=== PATIENT | male | born 1970 | race Two or more races ===

== ENCOUNTER → 2025-01-21 | Outpatient (CLI) | payer MEDICARE, SELFPAY ==
[2025-01-21 12:02] LABS: Basophils % (Auto) 1 % (0-2.5); Eosinophils % (Auto) 1 % (0-10); Hematocrit 45.1 % (41.0-53.0); Hemoglobin 15.6 g/dL (13.5-16.0); Immature Granulocytes % (Auto) 0 % (0-0); Immature Granulocytes Auto 0.01 Thou/mm3 (0.00-0.00); Lymphocytes # (Auto) 1.5 Thou/mm3 (1.0-4.8); Lymphocytes % (Auto) 38 % (10-50); Mean Corpuscular HGB Conc 34.6 g/dl (31.0-37.0); Mean Corpuscular Hemoglobin 30.4 pg (25.0-35.0); Mean Corpuscular Volume 88 fL (80-100); Monocytes # (Auto) 0.4 Thou/mm3 (0.0-0.8); Monocytes % (Auto) 10 % (0-12); Neutrophils % (Auto) 50 % (37-80); Nucleated Red Blood Cell % 0 /100 WBC (0); Platelet Count 185 Thou/mm3 (140-440); RDW Standard Deviation 43.6 fL (35.1-43.9); Red Blood Count 5.14 Miln/mm3 (4.50-5.90)
[2025-01-21 12:18] LABS: INR 3.2 (0.9-1.3)
[2025-01-21 12:27] LABS: Alanine Aminotransferase 27 U/L (10-49); Albumin, Serum 4.3 gm/dL (3.5-5.0); Albumin/Globulin Ratio 1.7 (1.2-2.2); Alkaline Phosphatase 133 U/L (46-116); Anion Gap 9 (7-16); Aspartate Amino Transferase 31 U/L (0-34); BUN/Creatinine Ratio 22 Ratio (12-20); Bilirubin,Total 0.9 mg/dL (0.3-1.2); Blood Urea Nitrogen 13 mg/dL (9-23); Calcium 9.2 mg/dL (8.3-10.6); Calcium (Corrected) 9.2 mg/dL (8.5-10.1); Carbon Dioxide 29.8 mMol/L (20.0-31.0); Cardiac Risk Estimate 5.1 RATIO (4.0-6.7); Chloride 105 mMol/L (98-107); Cholesterol 213 mg/dL (132-200); Creatinine (Component) 0.6 mg/dL (0.6-1.3); Globulin 2.5 gm/dL (2.3-3.5); Glucose 102 mg/dL (74-106); HDL Cholesterol 42 mg/dL (40-60); LDL Cholesterol,Calculated 131 mg/dL (0-130); Osmolality,Calculated 286 (275-295); Potassium 4.5 mMol/L (3.4-5.1); Sodium 144 mMol/L (136-145); Total Protein 6.8 gm/dL (5.7-8.2); Triglycerides 201 mg/dL (30-150); Uric Acid 5.9 mg/dL (3.7-9.2); eGFR > 60 See Note
[2025-01-21 12:41] LABS: Prothrombin Time 32.7 Seconds (9.0-12.2)
[2025-01-21 13:00] LABS: Collection Type, Urine Clean Catch; Squamous Epithelial Cell,Urine 0 /hpf (0-5)
[2025-01-21 13:24] LABS: Bacteria,Urine Rare; Bilirubin,Urine Negative (Negative); Blood,Urine Negative (Negative); Clarity,Urine Clear (Clear/Hazy); Color,Urine Yellow (Lt Yel-Yel); Glucose, Urine Negative (Negative); Ketones,Urine Negative (Negative); Leukocyte Esterase,Urine Negative (Negative); Nitrite,Urine Negative (Negative); Protein,Urine Trace (Neg - Trace); RBC,Urine 27 /hpf (0-3); Specific Gravity,Urine 1.028 (1.001-1.035); Urobilinogen,Urine Negative mg/dL (0.0-1.0); WBC,Urine 1 /hpf (0-5)
== END | disposition home or self-care (01) ==
LOC: COPL 11:05
PROVIDERS: PCP Family Medicine; Referring Provider Family Medicine; Visit Provider Family Medicine
DX: Z00.00 Encounter for general adult medical examination without abnormal findings (principal); E78.2 Mixed hyperlipidemia; I10 Essential (primary) hypertension; E79.0 Hyperuricemia without signs of inflammatory arthritis and tophaceous disease; Z95.2 Presence of prosthetic heart valve
CPT/HCPCS: 36415; 80053; 80061; 81001; 84550; 85025; 85610

== ENCOUNTER → 2025-02-17 | Outpatient (CLI) | payer OTHER, SELFPAY ==
--- NOTE | 2025-02-17 | XR_ITS ---
Examination: Shoulder,right, 3 views Technique: Shoulder AP internal rotation, AP external rotation, Y view shoulder, 3 views Exam date and time :February 09, 2025 1133 hours INDICATIONS: Right shoulder pain one year. FINDINGS: Moderate osteopenia. Moderate narrowing glenohumeral joint No fracture or shoulder dislocation Minimal AC joint offset, 4 mm, which may be chronic IMPRESSION: Moderate narrowing glenohumeral joint Minimal AC joint separation which may be chronic
== END | disposition home or self-care (01) ==
PROVIDERS: PCP Family Medicine; Referring Provider Family Medicine; Visit Provider Family Medicine
DX: S43.101A Unspecified dislocation of right acromioclavicular joint, initial encounter (principal); X58.XXXA Exposure to other specified factors, initial encounter; M25.811 Other specified joint disorders, right shoulder
CPT/HCPCS: 73030

== ENCOUNTER → 2025-05-13 | Outpatient (CLI) | payer OTHER, SELFPAY ==
[2025-05-13 10:37] LABS: Basophils # (Auto) 0.1 Thou/mm3 (0.0-0.2); Basophils % (Auto) 1 % (0-2.5); Eosinophils # (Auto) 0.1 Thou/mm3 (0.0-0.5); Eosinophils % (Auto) 1 % (0-10); Hematocrit 46.0 % (41.0-53.0); Hemoglobin 15.8 g/dL (13.5-16.0); Immature Granulocytes Auto 0.02 Thou/mm3 (0.00-0.00); Lymphocytes # (Auto) 1.8 Thou/mm3 (1.0-4.8); Lymphocytes % (Auto) 35 % (10-50); Mean Corpuscular HGB Conc 34.3 g/dl (31.0-37.0); Mean Corpuscular Hemoglobin 30.2 pg (25.0-35.0); Mean Corpuscular Volume 88 fL (80-100); Monocytes # (Auto) 0.4 Thou/mm3 (0.0-0.8); Monocytes % (Auto) 8 % (0-12); Neutrophils # (Auto) 2.8 Thou/mm3 (1.8-7.7); Neutrophils % (Auto) 54 % (37-80); Nucleated Red Blood Cell # 0.00 Thou/mm3 (0.00-0.00); Nucleated Red Blood Cell % 0 /100 WBC (0); Platelet Count 202 Thou/mm3 (140-440); RDW Standard Deviation 42.2 fL (35.1-43.9); Red Blood Count 5.23 Miln/mm3 (4.50-5.90); White Blood Count 5.2 Thou/mm3 (3.8-10.6)
[2025-05-13 10:50] LABS: Alanine Aminotransferase 24 U/L (10-49); Albumin, Serum 4.1 gm/dL (3.5-5.0); Albumin/Globulin Ratio 1.7 (1.2-2.2); Alkaline Phosphatase 140 U/L (46-116); Anion Gap 9 (7-16); Aspartate Amino Transferase 30 U/L (0-34); BUN/Creatinine Ratio 17 Ratio (12-20); Bilirubin,Total 0.8 mg/dL (0.3-1.2); Blood Urea Nitrogen 10 mg/dL (9-23); Calcium 9.6 mg/dL (8.3-10.6); Calcium (Corrected) 9.6 mg/dL (8.5-10.1); Carbon Dioxide 25.6 mMol/L (20.0-31.0); Cardiac Risk Estimate 3.3 RATIO (4.0-6.7); Chloride 107 mMol/L (98-107); Cholesterol 130 mg/dL (132-200); Creatinine (Component) 0.6 mg/dL (0.6-1.3); Globulin 2.4 gm/dL (2.3-3.5); Glucose 111 mg/dL (74-106); HDL Cholesterol 39 mg/dL (40-60); LDL Cholesterol,Calculated 52 mg/dL (0-130); Osmolality,Calculated 283 (275-295); Potassium 4.3 mMol/L (3.4-5.1); Sodium 142 mMol/L (136-145); Total Protein 6.5 gm/dL (5.7-8.2); Triglycerides 197 mg/dL (30-150); eGFR > 60 See Note
[2025-05-13 10:51] LABS: INR 3.3 (0.9-1.3)
[2025-05-13 11:04] LABS: Prothrombin Time 33.1 Seconds (9.0-12.2)
[2025-05-17 07:05] LABS: Valporic Acid (Depak)* 32.8 mg/L (50.0-100.0)
== END | disposition home or self-care (01) ==
LOC: COPL 09:40
PROVIDERS: PCP Family Medicine; Referring Provider Family Medicine; Visit Provider Family Medicine
DX: E78.2 Mixed hyperlipidemia (principal); I10 Essential (primary) hypertension; G40.89 Other seizures
CPT/HCPCS: 36415; 80053; 80061; 80164; 85025; 85610

== ENCOUNTER 2025-05-14 11:21 | Inpatient (IN) | payer OTHER, MEDICARE, SELFPAY ==
[2025-05-14 11:21] VITALS: BMI 29.0
--- NOTE | 2025-05-14 11:25 | EKG_ITS ---
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
[2025-05-14 12:05] VITALS: BP 143/83; PULSE 71; RESP 18; TEMP 37.1; O2SAT 93
--- NOTE | 2025-05-14 12:30 | XR_ITS ---
Examination: AP lateral chest 2 views TECHNIQUE: AP lateral chest 2 views Date and time: May 14, 2025 12:57 PM Comparison 06/02/2012 INDICATIONS: Chest pain today beginning 6:00 AM FINDINGS: Minor prominence left ventricle Median sternotomy wires with valve ring No lobar pneumonia or pulmonary edema Intact osseous structures Bilateral probable ventricular peritoneal shunt tubes IMPRESSION: No pneumonia or pulmonary edema
--- NOTE | 2025-05-14 12:32 | PD.EDRME ---
Rapid Medical Screening Exam RME Arrival date/time: 05/14/25 11:21 Chief Complaint: Chest Pain Vital signs: Vital Signs Temperature 98.7 F 05/14/25 12:05 Pulse Rate 71 05/14/25 12:05 Respiratory Rate 18 05/14/25 12:05 Blood Pressure 143/83 H 05/14/25 12:05 Pulse Oximetry (%) 93 L 05/14/25 12:05 Oxygen Delivery Method Room Air 05/14/25 12:05 RME Narrative: Patient is a 54-year-old male with medical history notable for mitral and aortic valve replacement, left surgery approximately 10 years ago at an Emergency Department with concerns for chest pain. Chest pain started approximately 6 AM, started at rest. Patient follows with Dr. Stevens. Patient takes warfarin daily. 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 Denies nausea vomiting abdominal pain dysuria recent travel sick contacts
[2025-05-14 13:31] LABS: Basophils # (Auto) 0.1 Thou/mm3 (0.0-0.2); Basophils % (Auto) 1 % (0-2.5); Eosinophils # (Auto) 0.1 Thou/mm3 (0.0-0.5); Eosinophils % (Auto) 1 % (0-10); Hematocrit 47.2 % (41.0-53.0); Hemoglobin 15.9 g/dL (13.5-16.0); Immature Granulocytes Auto 0.01 Thou/mm3 (0.00-0.00); Lymphocytes # (Auto) 2.1 Thou/mm3 (1.0-4.8); Lymphocytes % (Auto) 38 % (10-50); Mean Corpuscular HGB Conc 33.7 g/dl (31.0-37.0); Mean Corpuscular Hemoglobin 29.7 pg (25.0-35.0); Mean Corpuscular Volume 88 fL (80-100); Monocytes # (Auto) 0.5 Thou/mm3 (0.0-0.8); Monocytes % (Auto) 8 % (0-12); Neutrophils # (Auto) 2.8 Thou/mm3 (1.8-7.7); Neutrophils % (Auto) 52 % (37-80); Nucleated Red Blood Cell # 0.00 Thou/mm3 (0.00-0.00); Nucleated Red Blood Cell % 0 /100 WBC (0); Platelet Count 194 Thou/mm3 (140-440); RDW Standard Deviation 42.1 fL (35.1-43.9); Red Blood Count 5.35 Miln/mm3 (4.50-5.90); White Blood Count 5.4 Thou/mm3 (3.8-10.6)
[2025-05-14 13:57] LABS: INR 3.2 (0.9-1.3)
[2025-05-14 13:59] LABS: Prothrombin Time 32.0 Seconds (9.0-12.2)
[2025-05-14 14:06] LABS: B-Type Natriuretic Peptide 42 pg/mL (0-100)
[2025-05-14 14:09] LABS: Alanine Aminotransferase 26 U/L (10-49); Albumin, Serum 4.5 gm/dL (3.5-5.0); Albumin/Globulin Ratio 1.6 (1.2-2.2); Alkaline Phosphatase 152 U/L (46-116); Anion Gap 12 (7-16); Aspartate Amino Transferase 30 U/L (0-34); BUN/Creatinine Ratio 18 Ratio (12-20); Bilirubin,Total 0.8 mg/dL (0.3-1.2); Blood Urea Nitrogen 11 mg/dL (9-23); Calcium 9.5 mg/dL (8.3-10.6); Calcium (Corrected) 9.5 mg/dL (8.5-10.1); Carbon Dioxide 24.0 mMol/L (20.0-31.0); Chloride 105 mMol/L (98-107); Creatinine (Component) 0.6 mg/dL (0.6-1.3); Estimated Creatinine Clearance 137.9 mL/min (>60); Globulin 2.9 gm/dL (2.3-3.5); Glucose 92 mg/dL (74-106); Osmolality,Calculated 280 (275-295); Potassium 3.8 mMol/L (3.4-5.1); Sodium 141 mMol/L (136-145); Total Protein 7.4 gm/dL (5.7-8.2); Troponin I < 0.020 ng/mL (0.0-0.045); eGFR > 60 See Note
[2025-05-14 15:48] VITALS: BP 147/79; PULSE 90; RESP 18; TEMP 36.9; O2SAT 97
--- NOTE | 2025-05-14 16:04 | PD.IMCONS ---
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, s/p mechanical mitral and aortic valve surgeries in the past on coumadin anticoagulation ; pt had out patient cardiac w/u for atypical chest pain and stres test was abnormal ; out pt heart cath planned pt seen in the ER with chest pain and being admitted will plan to d/c coumadin and start on heparin EKG unremarkable cc:: cc: Meds Home Medications and Allergies Home Medications ?Medication ?Instructions ?Recorded ?Confirmed ?Type amlodipine 5 mg tablet 25 mg PO QDAY 05/13/18 05/13/18 History valproic acid 250 mg capsule 500 mg PO BID 05/13/18 05/13/18 History warfarin 6 mg tablet 6 mg PO QDAY 05/13/18 05/13/18 History Allergies Allergy/AdvReac Type Severity Reaction Status Date / Time No Known Allergies Allergy Verified 05/14/25 11:24 Exam Vital Signs Temp Pulse Resp BP Pulse Ox O2 Del Method 98.4 F 90 18 147/79 H 97 Room Air 05/14/25 15:48 05/14/25 15:48 05/14/25 15:48 05/14/25 15:48 05/14/25 15:48 05/14/25 15:48 Routine HEENT Exam Head: Present normocephalic and atraumatic Eye: Present EOMI and PERRL ENT: Present mucous membranes moist Routine Neck Exam Neck: Present supple and trachea midline Routine Respiratory Exam Respiratory: Present chest non-tender, lungs clear, normal breath sounds and no resp distress Routine Cardiovascular Exam Cardiovascular: Present RRR Routine Abdominal Exam Abdominal: Present soft and normoactive bowel sounds Routine Extremities Exam Extremities: Present full ROM Routine Skin Exam Skin: Present intact, dry and warm Routine Neurological Exam Neurological: Present alert, oriented X3 and CN II-XII intact Routine Psychiatric Exam Psychiatric: Present normal affect and normal thought process Results Labs 05/14/25 13:12 05/14/25 13:12 Labs: Short CBC 05/14/25 Range/Units 13:12 WBC 5.4 (3.8-10.6) Thou/mm3 Hgb 15.9 (13.5-16.0) g/dL Hct 47.2 (41.0-53.0) % Plt Count 194 (140-440) Thou/mm3 BMP 05/14/25 13:12 Sodium 141 Potassium 3.8 D Chloride 105 Carbon Dioxide 24.0 BUN 11 Creatinine 0.6 Glucose 92 Calcium 9.5 Cardiac Enzymes 05/14/25 Range/Units 13:12 Troponin I < 0.020 (0.0-0.045) ng/mL Liver Function 05/14/25 Range/Units 13:12 Total Bilirubin 0.8 (0.3-1.2) mg/dL AST 30 (0-34) U/L ALT 26 (10-49) U/L Alkaline Phosphatase 152 H (46-116) U/L Albumin 4.5 (3.5-5.0) gm/dL Assessment and Plan Assessment and plan (1) Angina at rest: Status: Acute (2) CAD (coronary artery disease): Status: Acute (3) S/P MVR (mitral valve replacement): Status: Acute (4) S/P AVR (aortic valve replacement): Status: Acute (5) Acquired deformities: Status: Acute (6) Hypertension: Status: Acute Additional Assessment & Plan Additional Plan: pt had out pt stress test which showed ischemia pt s/p Mechanical aortic and mitral valve on coumadin anticoagulation need to d/c coumadin and start on heparin drip for heart cath therapeutic PTT is important as pt had prior thromboembolism when anticoagulation is not therapeutic recommend echo
--- NOTE | 2025-05-14 16:09 | PD.EDCHEST ---
ED Chest Pain RME/HPI General Chief Complaint: Chest Pain Stated Complaint: CHEST PAIN SINCE 0600 Time Seen by Provider: 05/14/25 15:45 Arrival date/time: 05/14/25 11:21 Limitations: no limitations RME / HPI RME / HPI narrative: Patient is a 54-year-old male with medical history notable for mitral and aortic valve replacement, He came to the Emergency Department with concerns for chest pain with his sister. Chest pain started approximately 6 AM, started at rest. Patient follows with Dr. Stevens. Patient takes warfarin daily. 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 Denies nausea vomiting abdominal pain dysuria recent travel sick contacts. He has a [employer] valve and takes Coumadin for this. Related Data Home Medications ?Medication ?Instructions ?Recorded ?Confirmed amlodipine 5 mg tablet 25 mg PO QDAY 05/13/18 05/13/18 valproic acid 250 mg capsule 500 mg PO BID 05/13/18 05/13/18 warfarin 6 mg tablet 6 mg PO QDAY 05/13/18 05/13/18 Allergies Allergy/AdvReac Type Severity Reaction Status Date / Time No Known Allergies Allergy Verified 05/14/25 11:24 Review of Systems Review of Systems Systems Reviewed: All systems reviewed, normal except as documented ED Exam General Limitations: Present no limitations General appearance: Present alert and in no apparent distress Head Head exam: Present atraumatic Eye Eye exam: Present normal appearance, PERRL and EOMI ENT ENT exam: Present normal exam, normal oropharynx and mucous membranes moist Neck Neck exam: Present normal inspection, full ROM and trachea midline Chest Chest inspection: Present normal inspection and symmetric chest wall rise Respiratory Respiratory exam: Present normal lung sounds bilaterally Cardiovascular Cardiovascular exam: Present regular rate, normal rhythm and systolic murmur Abdominal Exam Abdominal exam: Present soft and normal bowel sounds Extremities Exam Extremities exam: Present normal inspection and full ROM Back Exam Back exam: Present normal inspection and full ROM Neurological Exam Neurological exam: Present alert and oriented X3 Psychiatric Psychiatric exam: Present normal affect and normal mood Skin Skin exam: Present warm, dry, intact and normal color Course Quality Measures none Orders Category Date Time Status COVID-19 Screening Questionnaire NOW Care 05/14/25 19:00 Active Decision to Admit Care 05/14/25 19:00 Active EKG (ED ONLY) *Do not use* NOW Care 05/14/25 11:25 Completed Consult to Cardiology Stat Cons 05/14/25 16:08 Ordered CXR2 [XR chest 2V] Stat Exams 05/14/25 12:30 Completed EKG (ED Only) Stat Exams 05/14/25 11:25 Draft BNP [B-Type Natriuretic Peptide] Stat Lab 05/14/25 13:12 Completed CBC Stat Lab 05/14/25 13:12 Completed CMP [Comprehensive Metabolic Panel] Stat Lab 05/14/25 13:12 Completed PT [Prothrombin Time with INR] Stat Lab 05/14/25 13:12 Completed Troponin I Stat Lab 05/14/25 13:12 Completed Heparin/D5w 25K 250 ML Ivpb [Heparin in D5w Ivpb] Med 05/14/25 19:15 Active 25,000 unit in 250 ml IV 12 units/kg/hr fentaNYL INJ [Sublimaze Inj] Med 05/14/25 12:30 Discontinued 50 mcg IM X1 ONE Vital Signs Vital signs: Vital Signs Temperature 98.7 F 05/14/25 12:05 Pulse Rate 71 05/14/25 12:05 Respiratory Rate 18 05/14/25 12:05 Blood Pressure 143/83 H 05/14/25 12:05 Pulse Oximetry (%) 93 L 05/14/25 12:05 Oxygen Delivery Method Room Air 05/14/25 12:05 Chest Pain MDM Narrative MDM Narrative:: Patient is a 54-year-old male with medical history notable for mitral and aortic valve replacement, He came to the Emergency Department with concerns for chest pain with his sister. Chest pain started approximately 6 AM, started at rest. Patient follows with Dr. Stevens. Patient takes warfarin daily. 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 Denies nausea vomiting abdominal pain dysuria recent travel sick contacts. He has a [employer] valve and takes Coumadin for this. On exam, patient has no toxic. No visible signs distress. Vital signs are stable. Workup was reviewed and discussed with the patient. His computer tester was contacted and would like the patient admitted for an angiogram. We will stop the Coumadin and start heparin drip. Case discussed with [facility] hospitalist team who will assist with the admission. Patient data External records reviewed:: [facility] previous records Clinical information provided by:: patient and family Social determinants that could affect healthcare access:: none Patient has the following chronic illnesses:: Coronary artery disease, aortic and mitral valve replacement How is presenting disease/condition affected by chronic disease/condition?: exacerbated by Evaluation data The following diagnostics were reviewed and interpreted by me:: lab results, radiology exam(s) and EKG tracing(s) Lab and/or radiology exams considered but not ordered:: n/a Interpretation Summary: Patient has no leukocytosis or anemia, INR is 3.2, PTT is 32 metabolic panel is unremarkable with exception of elevated alk phos at 152. Chest ray was clear without infiltrate. EKG was normal sinus rhythm with voltage for LVH. Medications / Prescriptions Medications or Prescriptions considered but not ordered:: n/a Medication administrations:: Medication Administration History Heparin Sodium/Dextrose (Heparin In D5w Ivpb) 25,000 unit in 250 mls @ 9.798 mls/hr IV .Q24H [facility]; Protocol Stop: 05/28/25 19:14 Discontinued Medications Fentanyl Citrate (Fentanyl Cit Inj 50 Mcg/Ml Amp 2ml) 50 mcg IM X1 ONE Stop: 05/14/25 12:31 see above Consultations Consultation(s) initiated? (list below): No Diagnosis Chest Pain Differential Diagnosis: stable angina, atypical chest pain, st elevation myocardial infarction and chest pain Most likely diagnosis given after review of the tests above:: chest pain Admission Indicated Admission indicated?: indicated Admission Request Was there a request for admission?: Yes Admission Attestation Admission request attestation: Discussed case with [] from Hospitalist service regarding admission. Discussed patients ED course, exam findings, labs, and radiology results. The Hospitalist [agrees,declines] to accept the patient for admission. Disposition Plan Disposition Plan: Admit Discharge Plan Plan Patient Disposition: Admit Acute Care w/in Hospital Patient condition on transfer: Stable Prescriptions/Referrals Prescriptions/Med Rec: No Action warfarin 6 mg Tablet 6 mg PO QDAY amlodipine 5 mg Tablet 25 mg PO QDAY valproic acid 250 mg Capsule 500 mg PO BID Referrals: Ti Lopez MD [Primary Care Provider] - In 1 week Problem List Clinical Impression: CAD (coronary artery disease), S/P MVR (mitral valve replacement), S/P AVR (aortic valve replacement), Chest pain Patient/Caregiver Discharge Instructions Print Language: German Stand Alone Forms: [employer] Award Info., Patient Portal Info Letter
[2025-05-14 18:41] VITALS: BP 118/74; PULSE 73; RESP 18; TEMP 36.9; O2SAT 95
--- NOTE | 2025-05-14 20:16 | ECHO_ITS ---
Transthoracic Echo Report Ht (in): 66 Wt (lb): 180 Exam Location: Echo Lab Status: Emergency Certified Driver Examiner: Yuliet Garcia Indications: Procedure Performed: BP: 130 / 79 HR: 63 MEASUREMENTS (Male / Female) Normal Values 2D ECHO LV Diastolic Diameter PLAX 3.9 cm 4.2 - 5.9 / 3.9 - 5.3 cm LV Systolic Diameter PLAX 2.8 cm IVS Diastolic Thickness 1.2 cm 0.6 - 1.0 / 0.6 - 0.9 cm LVPW Diastolic Thickness 1.0 cm 0.6 - 1.0 / 0.6 - 0.9 cm LV Relative Wall Thickness 0.6 LVOT Diameter 1.5 cm LA Volume Index 43.7 cm?/m? 16 - 28 cm?/m? DOPPLER AV Peak Velocity 228.0 cm/s AV Peak Gradient 20.8 mmHg AV Mean Gradient 10.0 mmHg AV Velocity Time Integral 42.5 cm LVOT Peak Velocity 81.1 cm/s LVOT Peak Gradient 2.6 mmHg LVOT Velocity Time Integral 19.9 cm LVOT Cardiac Index 1123.3 cm?/min?m? AV Area Cont Eq vti 0.8 cm? AV Area Cont Eq pk 0.6 cm? MV Peak Velocity 125.0 cm/s MV Peak Gradient 6.3 mmHg MV Mean Velocity 60.5 cm/s MV Mean Gradient 2.0 mmHg MV Area PHT 2.0 cm? Mitral E Point Velocity 138.0 cm/s Mitral A Point Velocity 54.2 cm/s Mitral E to A Ratio 2.5 LV E' Lateral Velocity 13.1 cm/s Mitral E to LV E' Lateral Ratio 10.5 LV E' Septal Velocity 6.9 cm/s Mitral E to LV E' Septal Ratio 20.1 TR Peak Velocity 313.0 cm/s TR Peak Gradient 39.2 mmHg PV Peak Velocity 96.4 cm/s PV Peak Gradient 3.7 mmHg FINDINGS Left Ventricle Normal left ventricular size, wall thickness, systolic function with no obvious regional wall motion abnormalities. Normal left ventricular diastolic filling pattern for age. The ejection fraction is visually estimated at 55%. Right Ventricle The right ventricular size is mildy increased with normal systolic function. Left Atrium Moderately increased left atrial volume 43.7 mL/m?. Right Atrium The right atrium is normal by two-dimensional imaging, color flow and Doppler imaging with no structural abnormalities, no thrombus formation present. Atrial Septum The interatrial septum appears normal with no evidence of a shunt. Aorta The aortic root, ascending aorta, aortic arch and descending thoracic aorta are normal to two-dimensional, color flow and Doppler interrogation. Mitral Valve The mitral valve prosthesis is normal to two-dimensional, color flow and Doppler interrogation. Trace mitral regurgitation. Aortic Valve The aortic valve prosthesis is normal to two-dimensional, color flow and Doppler interrogation. There is no evidence of mass/vegetation on the aortic valve prosthesis. Tricuspid Valve The tricuspid valve is normal by two-dimensional, color flow and Doppler interrogation. There is trace tricuspid valve regurgitation. Pulmonic Valve Mild pulmonic valve regurgitation. Vessels Inferior vena cava not well visualized. Pericardium The pericardium is normal by two-dimensional imaging. There is no significant pericardial effusion. CONCLUSIONS Indication: chest pain Normal LV size, wall thickness. Normal left ventricular diastolic filling pattern for age. Estimated EF at 55%. The RV size is mildy increased with normal systolic function. Moderately increased LA volume 43.7 mL/m?. The MV prosthesis is normal to two-dimensional, color flow and Doppler interrogation. Trace MR. The AV prosthesis is normal to two-dimensional, color flow and Doppler interrogation. There is no evidence of mass/vegetation on the aortic valve prosthesis. Mild PI. IVC not well visualized. Gary Stevens (Electronically Signed) Final Date: 17 May 2025 11:20
[2025-05-14 20:17] VITALS: BP 118/74; PULSE 67; RESP 18; O2SAT 94
[2025-05-14 20:25] LABS: Partial Thromboplastin Time 43.7 Seconds (22.0-36.0)
--- NOTE | 2025-05-14 20:25 | PD.RESHP ---
Documentation for date of: 05/14/25 [facility] History of Present Illness History of present illness: (patient is Sudanese-speaking, information was gathered from patient interview conducted by Dr. 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 Patient says that the pain started at 6 AM this morning and awoke him from his sleep. He localizes the pain to the left pectoral area and reports that it radiates to the back and neck but not the arm. He describes the pain as intermittent and that he has never had a similar prior episode. In terms of severity, he states that the pain is a 9/10. He also reports that the last time he took his valproic acid and warfarin was last night. He denies any recent travel history or sick contacts. In the ED, vitals showed: BP 143/83 HR 71 RR 18 Temp 98.7 SpO2 93% on room air ED Course: CBC was WNL. Coagulation panel showed significantly elevated PT 32.0, elevated INR 3.2, and elevated APTT 43.7. CMP showed slightly elevated alkaline phosphatase 152 but was otherwise WNL. Imaging: EKG was unremarkable. CXR showed no pneumonia or pulmonary edema. It also showed median sternotomy wires with valve rings and bilateral ventricular peritoneal shunt tubes in place. In the ED, patient was started on IV heparin sodium/dextrose 25,000 U in 250 mL @ 12 U/kg/hr. Patient was admitted for the work-up and management of unstable angina concerning for ACS. Dr. Stevens was consulted and is closely following the case. Review of Systems Constitutional Comments: General: Denies fevers or chills HEENT: Denies congestion or sore throat Heart: Endorses chest pain. Denies palpitations Lungs: Denies shortness of breath or cough Abdomen: Denies abdominal pain, nausea, vomiting, constipation, diarrhea, or blood in stool Genitourinary: Denies frequency, urgency, dysuria, or hematuria Neurology: Denies any changes in vision, weakness or difficulty speaking Review of systems otherwise negative except what is mentioned above. Past Medical History Past Medical History Comments PMH COMMENT: (patient is Sudanese-speaking, information was gathered from patient interview conducted by Dr. Granado at the time) PMH: valvular heart disease, 2014 TBI and intracranial hemorrage leading to both subsequent seizure disorder and wheelchair-bound status, HLD, childhood polio, deformities of hands and feet PSH: aortic and mitral valve replacement ([employer] valve), surgical placement of bilateral CAD SPECIALIST shunt, some kind of knee surgery Medications: PO warfarin 6 mg qD, PO valproic acid 500 mg BID, atorvastatin, sertraline (awaiting medication reconciliation) Allergies: NKDA FH: deferred SH: deferred Exam Vital Signs Temp Pulse Resp BP Pulse Ox O2 Del Method 98.4 F 67 18 118/74 94 L Room Air 05/14/25 18:41 05/14/25 20:17 05/14/25 20:17 05/14/25 20:17 05/14/25 20:17 05/14/25 20:17 Narrative Exam Physical Exam: General: A/O x3, no acute distress. Skin: Warm, dry, intact, no obvious rash. Head: Normocephalic, atraumatic. Eyes: Milky appearance of left iris and pupil. EOMI. Anicteric, vision grossly intact. Ears: No ear pain, no ear discharge, Hearing grossly intact. Nose: No nasal discharge. Mouth/Throat: Oral mucosa moist. No obvious lesions in oropharynx. Neck: Neck supple, non-tender, no cervical lymphadenopathy. Cardiovascular: Regular rate and rhythm, no murmur, no JVD or carotid bruits. +S1/S2. Respiratory: Bilateral lungs are clear to auscultation and percussion, respirations unlabored, no crackles, no wheezing. No accessory muscle use. Gastrointestinal: Soft, nontender, non-distended, no palpable masses. No guarding or rebound tenderness. Peristalsis present. Extremities: Deformed and contracted fingers, hands, and feet bilaterally. No edema, no cyanosis.. 2+ radial pulse bilaterally, 2+ posterior tibial pulse bilaterally. Neuro: No focal deficits observed. Conversant, moving all extremities. No overt cerebellar signs/incoordination. Psychiatric: Cooperative, appropriate affect. Results: Labs 05/14/25 13:12 05/14/25 13:12 Labs: Short CBC 05/14/25 Range/Units 13:12 WBC 5.4 (3.8-10.6) Thou/mm3 Hgb 15.9 (13.5-16.0) g/dL Hct 47.2 (41.0-53.0) % Plt Count 194 (140-440) Thou/mm3 BMP 05/14/25 13:12 Sodium 141 Potassium 3.8 D Chloride 105 Carbon Dioxide 24.0 BUN 11 Creatinine 0.6 Glucose 92 Calcium 9.5 Cardiac Enzymes 05/14/25 Range/Units 13:12 Troponin I < 0.020 (0.0-0.045) ng/mL Liver Function 05/14/25 Range/Units 13:12 Total Bilirubin 0.8 (0.3-1.2) mg/dL AST 30 (0-34) U/L ALT 26 (10-49) U/L Alkaline Phosphatase 152 H (46-116) U/L Albumin 4.5 (3.5-5.0) gm/dL Quality Measures Quality Measures none Medications Home Medications and Allergies Home Medications ?Medication ?Instructions ?Recorded ?Confirmed ?Type amlodipine 5 mg tablet 25 mg PO QDAY 05/13/18 05/13/18 History valproic acid 250 mg capsule 500 mg PO BID 05/13/18 05/13/18 History warfarin 6 mg tablet 6 mg PO QDAY 05/13/18 05/13/18 History Allergies Allergy/AdvReac Type Severity Reaction Status Date / Time No Known Allergies Allergy Verified 05/14/25 11:24 Visit Medications Acetaminophen (Acetaminophen 325 Mg Tablet) 650 mg PO Q6H PRN PRN Reason: PAIN SCALE 1-3 (mild Stop: 06/13/25 20:10 Heparin Sodium/Dextrose (Heparin In D5w Ivpb) 25,000 unit in 250 mls @ 9.798 mls/hr IV .Q24H GABE; Protocol Stop: 05/28/25 19:29 Ondansetron HCl (Ondansetron Inj 2 Mg/Ml Inj 2 Ml) 4 mg IVP Q6H PRN; Protocol PRN Reason: NAUSEA OR VOMITING Stop: 06/13/25 20:10 Tramadol HCl (Tramadol Hcl 50 Mg Tablet) 50 mg PO Q6HR PRN PRN Reason: PAIN SCALE 4-6 (Moderate Stop: 05/19/25 20:10 Discontinued Medications Fentanyl Citrate (Fentanyl Cit Inj 50 Mcg/Ml Amp 2ml) 50 mcg IM X1 ONE Stop: 05/14/25 12:31 Last Admin: 05/14/25 20:19 Dose: Not Given Assessment & Plan Plan Rick Brandt is a 54-year-old M with a PMH of valvular heart disease s/p aortic valve and mitral valve replacement, 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 Patient was admitted for the work-up and management of unstable angina concerning for ACS. Dr. Stevens was consulted and is closely following the case. #Unstable angina, r/o ACS #Valvular heart disease, s/p aortic valve and mitral valve replacement Chest pain localized to left pectoral area that radiates to the back and neck but not the arm beginning 6 AM this morning PMH significant for valvular heart disease s/p aortic valve and mitral valve replacement and hyperlipidemia On admission: troponin WNL (2 negative readings so far) & EKG showed normal sinus rhythm No remarkable auscultation findings Diagnostic Inquiry -Echocardiogram -Lipid panel -Hemoglobin A1c -TSH level -Consulted cardiology, recommended: 1. No aspirin, ticagrelor, beta-blockers 2. Heparin for therapeutic PTT 3. Discontinue warfarin Treatment Plan -Trend troponins (2 negative readings so far) -Restarted home medication: PO atorvastatin 40 mg qHS -Continue monitoring for acute changes in chest pain presentation #Other medical problems #Seizure disorder 2/2 TBI (2013) -Restarted home medication: PO valproic acid syrup 500 mg BID #Hyperlipidemia -Restarted home medication: PO atorvastatin 40 mg qHS #Bilateral CAD SPECIALIST shunt in place #Wheelchair-bound status #Deformities of bilateral fingers, hands, and feet 2/2 childhood polio Hospital Management: Disposition: undergoing work-up and management of unstable angina concerning for ACS Diet: Cardiac GI Prophylaxis: IV Protonix 40 mg BID Bowel Prophylaxis: Senna DVT Prophylaxis: Heparin CODE STATUS: Full Code I have examined the patient and conferred with my attending, Dr. Don, and my senior resident, Dr. Granado, regarding them. Jason Carl DO PGY-1 Internal Medicine Attending Provider Attestation/Addendum I have examined the patient, reviewed labs and imaging findings, discussed the case with the resident(s), and reviewed entered orders. I agree with the plan of care as outlined in this note, with these additional summaries/recommendations: After examination of the patient and review of the clinical data, I feel that this patient needs admission to the hospital for further treatment and evaluation. Patient is a 54-year-old male with a medical history of TBI with brain bleed, status post craniotomy and CAD SPECIALIST shunt, CAD, mitral and aortic valve replacement on warfarin, primary hypertension, dyslipidemia, and Seizure disorder presents to [facility] emergency department on 05/14/2025 with chief complaint of chest pain. Patient and patient's seen at bedside. Patient endorses chest pain which is pressure-like in quality. He has been having intermittent episodes of chest pain at rest and recently completed outpatient stress test which was abnormal. Patient has outpatient cardiac catheterization planned although given that chest pain was significant today he came to the emergency room. Patient has already been evaluated by cardiology who recommends admission for cardiac cath. Patient diagnosed with unstable angina. Troponin WNL and EKG unremarkable. Start heparin gtt, target APTT of 60 to 80 seconds. Start atorvastatin 40 mg p.o. at bedtime for plaque stabilization. Patient does not appear to take any antiplatelet medicines at home likely secondary to bleeding risks/coagulopathy on warfarin. We will follow-up with cardiology if they would like to proceed with monotherapy antiplatelet with aspirin or defer for now. Order risk factor screening with lipid panel, A1c, and TSH. Order echocardiogram. Cardiac diet. Admit to telemetry. Patient has history of mitral and aortic valve replacement on warfarin 6 mg p.o. daily. INR slightly supratherapeutic on admission 3.2. Per cardiology hold warfarin for now and start heparin gtt. Resume home valproic acid for seizure disorder. Resume home antihypertensives. Patient and patient's updated on the plan and agreement. All questions answered to satisfaction. Please see residents note for additional details and management. Dr. Arian MD
[2025-05-14 20:44] LABS: Troponin I < 0.020 ng/mL (0.0-0.045)
[2025-05-14] MEDS: Heparin/D5w 25K 250 ML Ivpb 25,000 UNIT/250 ML BAG 9.798 UNIT IV (20:55)
[2025-05-14] MEDS: ATORVASTATIN CALCIUM 20 MG TABLET 40 MG PO (21:47)
[2025-05-14] MEDS: VALPROIC ACID SYRUP 250 MG/5 ML UDC 500 MG PO (21:47)
[2025-05-14 22:22] VITALS: BP 118/74; PULSE 67; RESP 17; TEMP 36.5; O2SAT 94
[2025-05-15] VITALS (15 sets, daily range): BP systolic 106–169; BP diastolic 49–89; PULSE 60–67; RESP 14–25; TEMP 36.3–37; O2SAT 92–97
[2025-05-15 00:27] LABS: Glucose Estimated Average 111 mg/dL (80-131); Hemoglobin A1C 5.5 % Hgb (4.8-6.0)
[2025-05-15 00:42] LABS: Thyroid Stimulating Hormone 2.51 uIU/mL (0.55-4.78)
[2025-05-15 03:50] LABS: Basophils # (Auto) 0.1 Thou/mm3 (0.0-0.2); Basophils % (Auto) 1 % (0-2.5); Eosinophils # (Auto) 0.1 Thou/mm3 (0.0-0.5); Eosinophils % (Auto) 2 % (0-10); Hematocrit 43.3 % (41.0-53.0); Hemoglobin 14.6 g/dL (13.5-16.0); Immature Granulocytes Auto 0.01 Thou/mm3 (0.00-0.00); Lymphocytes # (Auto) 2.6 Thou/mm3 (1.0-4.8); Lymphocytes % (Auto) 45 % (10-50); Mean Corpuscular HGB Conc 33.7 g/dl (31.0-37.0); Mean Corpuscular Hemoglobin 29.8 pg (25.0-35.0); Mean Corpuscular Volume 88 fL (80-100); Monocytes # (Auto) 0.5 Thou/mm3 (0.0-0.8); Monocytes % (Auto) 8 % (0-12); Neutrophils # (Auto) 2.6 Thou/mm3 (1.8-7.7); Neutrophils % (Auto) 44 % (37-80); Nucleated Red Blood Cell # 0.00 Thou/mm3 (0.00-0.00); Nucleated Red Blood Cell % 0 /100 WBC (0); Platelet Count 172 Thou/mm3 (140-440); RDW Standard Deviation 42.1 fL (35.1-43.9); Red Blood Count 4.90 Miln/mm3 (4.50-5.90); White Blood Count 5.8 Thou/mm3 (3.8-10.6)
[2025-05-15 04:08] LABS: Alanine Aminotransferase 21 U/L (10-49); Albumin, Serum 3.8 gm/dL (3.5-5.0); Albumin/Globulin Ratio 1.8 (1.2-2.2); Alkaline Phosphatase 136 U/L (46-116); Anion Gap 9 (7-16); Aspartate Amino Transferase 26 U/L (0-34); BUN/Creatinine Ratio 24 Ratio (12-20); Bilirubin,Total 0.8 mg/dL (0.3-1.2); Blood Urea Nitrogen 12 mg/dL (9-23); Calcium 9.0 mg/dL (8.3-10.6); Calcium (Corrected) 9.2 mg/dL (8.5-10.1); Carbon Dioxide 26.9 mMol/L (20.0-31.0); Cardiac Risk Estimate 3.1 RATIO (4.0-6.7); Chloride 107 mMol/L (98-107); Cholesterol 119 mg/dL (132-200); Creatinine (Component) 0.5 mg/dL (0.6-1.3); Estimated Creatinine Clearance 165.5 mL/min (>60); Globulin 2.1 gm/dL (2.3-3.5); Glucose 115 mg/dL (74-106); HDL Cholesterol 38 mg/dL (40-60); LDL Cholesterol,Calculated 58 mg/dL (0-130); Magnesium 1.8 mg/dL (1.6-2.6); Osmolality,Calculated 285 (275-295); Phosphorous 3.9 mg/dL (2.4-5.1); Potassium 3.8 mMol/L (3.4-5.1); Sodium 143 mMol/L (136-145); Total Protein 5.9 gm/dL (5.7-8.2); Triglycerides 113 mg/dL (30-150); eGFR > 60 See Note
[2025-05-15 04:27] LABS: Partial Thromboplastin Time > 139.0 Seconds (22.0-36.0)
--- NOTE | 2025-05-15 04:30 | PC.NURSE ---
[facility] OF 139 PTT. PER PROTOCOL OF HEPARIN DRIP, DRIP WAS STOPPED. PROVIDER WAS CALLED, NO NEW ORDERS GIVEN.
--- NOTE | 2025-05-15 07:33 | PC.NURSE ---
REPORT RECEIVED AND CARE ASSUMED. PT TO BE ADMITTED FOR CHEST PAIN, DENIES PAIN AT THIS TIME. HEPARIN CONTINUES TO INFUSED WELL
[2025-05-15] MEDS: VALPROIC ACID SYRUP 250 MG/5 ML UDC 500 MG PO ×2 (09:15→21:15)
--- NOTE | 2025-05-15 12:53 | PD.RESPRO ---
Documentation for date of: 05/15/25 Subjective Subjective Interval history: Today patient was seen and examined at bedside, saturating well on room air. Patient endorses intermittent pressure-like pain but denies palpitation dizziness, nausea vomiting, abdominal pain, and urinary symptoms. Vitals are stable. AM labs reviewed. Significant for for APPT 139 downtrending to 77.5 Cardiology consulted and instructed continue heparin drip and daily INR monitoring Started patient on aspirin 81 mg PO x1 Exam Vital Signs Temp Pulse Resp BP Pulse Ox O2 Del Method 98.2 F 60 25 H 127/82 95 Room Air 05/15/25 12:01 05/15/25 12:06 05/15/25 12:01 05/15/25 12:01 05/15/25 12:01 05/15/25 10:37 Narrative Exam Physical Exam General: Wheelchair-bound, awake and in no acute distress. Conversational and non-toxic appearing. HEENT: Hypopigmentation of the left eye, ventriculoperitoneal shunt scar Heart: Regular rate and rhythm, normal S1 and S2, no murmurs. Lungs: Clear to auscultation with no wheezing or crackles. Abdomen: Soft, nondistended, nontender, positive bowel sounds. ?No guarding or rebound tenderness. Neurologic: Alert and oriented x3, LLE motor strength 4/5, RLE nonfunctional with 0/ 5 strength and flaccid tone, UE with normal strength 55 bilaterally Extremities:Deformed and contracted fingers, hands, and feet bilaterally. No edema. Skin: No rash or ecchymoses. Objective Labs 05/15/25 03:32 05/15/25 03:32 Labs: Laboratory Results - last 24 hr 05/14/25 05/14/25 05/15/25 13:12 19:40 03:32 WBC 5.4 5.8 RBC 5.35 4.90 Hgb 15.9 14.6 Hct 47.2 43.3 MCV 88 88 MCH 29.7 29.8 MCHC 33.7 33.7 RDW Std Deviation 42.1 42.1 Plt Count 194 172 Neut % (Auto) 52 44 Lymph % (Auto) 38 45 [place] % (Auto) 8 8 Eos % (Auto) 1 2 Baso % (Auto) 1 1 Neut # (Auto) 2.8 2.6 Lymph # (Auto) 2.1 2.6 [place] # (Auto) 0.5 0.5 Eos # (Auto) 0.1 0.1 Baso # (Auto) 0.1 0.1 Immature Gran # (Auto) 0.01 H 0.01 H Absolute Nucleated RBC 0.00 0.00 Immature Gran % 0 0 Nucleated RBC % 0 0 PT 32.0 H* INR 3.2 H APTT 43.7 H > 139.0 H* D Sodium 141 143 Potassium 3.8 D 3.8 Chloride 105 107 Carbon Dioxide 24.0 26.9 Anion Gap 12 9 BUN 11 12 Creatinine 0.6 0.5 L Estim Creat Clear Calc 137.9 165.5 eGFR > 60 > 60 BUN/Creatinine Ratio 18 24 H Glucose [address] Glu mg/dL 111 Hemoglobin A1c 5.5 Calculated Osmolality 280 285 Calcium 9.5 9.0 Corrected Calcium 9.5 9.2 Phosphorus 3.9 Magnesium 1.8 Total Bilirubin 0.8 0.8 AST 30 26 ALT 26 21 Alkaline Phosphatase 152 H 136 H Troponin I < 0.020 < 0.020 B-Natriuretic Peptide 42 Total Protein 7.4 5.9 Albumin 4.5 3.8 D Globulin 2.9 2.1 L Albumin/Globulin Ratio 1.6 1.8 Triglycerides 113 Cholesterol 119 L LDL Cholesterol, Calc 58 HDL Cholesterol 38 L Cholesterol/HDL Ratio 3.1 L TSH 2.51 Quality Measures Quality Measures none Assessment & Plan Assessment Current Active Medications: Generic Name Dose Route Start Last Admin Trade Name Freq PRN Reason Stop Dose Admin Acetaminophen 650 mg 05/14/25 20:11 Acetaminophen 325 Mg Tablet PO 06/13/25 20:10 Q6H PRN PAIN SCALE 1-3 (mild Atorvastatin Calcium 40 mg 05/14/25 21:00 05/14/25 21:47 Atorvastatin Calcium 20 Mg Tablet PO 06/13/25 20:59 40 mg HS GABE Administration Heparin Sodium/Dextrose 25,000 unit in 250 mls @ 9.798 mls/hr 05/14/25 19:30 05/15/25 05:29 Heparin In D5w Ivpb IV 05/28/25 19:29 9 units/kg/hr .Q24H GABE 7.348 mls/hr Titration Protocol 12 UNITS/KG/HR Ondansetron HCl 4 mg 05/14/25 20:11 Ondansetron Inj 2 Mg/Ml Inj 2 Ml IVP 06/13/25 20:10 Q6H PRN NAUSEA OR VOMITING Protocol Sennosides 1 tab 05/14/25 22:53 Senna Tablet PO 06/13/25 22:52 QDAY PRN CONSTIPATION Protocol Tramadol HCl 50 mg 05/14/25 20:11 Tramadol Hcl 50 Mg Tablet PO 05/19/25 20:10 Q6HR PRN PAIN SCALE 4-6 (Moderate Valproic Acid 500 mg 05/14/25 21:15 05/15/25 09:15 Valproic Acid Syrup 250 Mg/5 Ml Udc PO 06/13/25 21:14 500 mg BID GABE Administration Plan Mr. Brandt is a 54-year-old male with past medical history significant for childhood polio with deformitis of the hands and legs, TBI with brain bleed, s/p craniotomy with MECHANICAL ENGINEERING DRAFTSPERSON shunt, CAD, mitral and aortic valve replacement on warfarin, hypertension, dyslipidemia, seizure disorder presented to the ED on 05/14 with chief complain intermittent pressure-like chest pain. Admitted for ACS workup and management. #Unstable angina 2/2 # Rule out Coronary artery disease #Valvular heart disease, s/p aortic valve and mitral valve replacement # Prior thromboembolism #Hyperlipemia Patient endorses pressure-like pain that is intermittent at rest. Recently patient completed a stress test which was abnormal value. Was scheduled for outpatient cardiac cath however due to significant chest pain he presented to the ED. PMH significant for valvular heart disease s/p aortic valve and mitral valve replacement and hyperlipidemia. Likely unstable angina due to intermittent chest pain, Troponin WNL and EKG unremarkable. On admission: troponin WNL (2 negative readings so far) & EKG showed normal sinus rhythm Chest x-ray showed median sternotomy wires of frame, minor prominence left ventricle, bilateral probable ventriculoperitoneal shunt tubes. No pneumonia or pulmonary edema. Cholesterol 119, HDL38 Per cardiology hold warfarin for now and start heparin for therapeutic PTT (Therapeutic PTT is important as pt had prior thromboembolism when anticoagulation is not therapeutic recommend echo ), no plavix Plan -Stopped trending troponins (2 negative readings so far) -Restarted home medication: PO atorvastatin 40 mg qHS - Aspirin 81 mg PO x1 - Daily INR - Continue monitoring for acute changes in chest pain presentation - Echo ordered - Maintain potassium >4.0 and magnesium >2.0 # Seizures disorders s/p TBI Patient had seizure disorder post s/p traumatic brain injury in 2013 Plan - Continue home valproic acid for seizure disorder # Primary hypertension Patient has a history of pulmonary hypertension being managed on amlodipine 25 mg p.o. daily Plan - Continue to monitor blood pressure -Pending med rec #Bilateral MECHANICAL ENGINEERING DRAFTSPERSON shunt in place #Wheelchair-bound status #Deformities of bilateral fingers, hands, and feet 2/2 childhood polio Hospital Management: Disposition: undergoing work-up and management of unstable angina concerning for ACS Diet: Cardiac GI Prophylaxis: IV Protonix 40 mg BID Bowel Prophylaxis: Senna DVT Prophylaxis: Heparin CODE STATUS: Full Code Patient seen and assessed under supervision of attending physician Dr.Bishwakarma Elizabeth Barrett MD PGY-1, Internal Medicine Attending Provider Attestation/Addendum I attest that I was physically present for the evaluation, physical examination, lab and imaging review of the patient with the residents. I discussed the case with the residents and agree with the findings and plans of care as documented above. Bessie Cottrell MD
[2025-05-15 12:57] LABS: Partial Thromboplastin Time 77.5 Seconds (22.0-36.0)
--- NOTE | 2025-05-15 12:57 | PC.NURSE ---
WAITING ON PTT TO BE RESULTED
--- NOTE | 2025-05-15 13:08 | PC.NURSE ---
PTT 77.5 NOW. NO BOLUS INDICATED AND DRIP TO REMAIN THE SAME WITH REPEAT PTT AT 1910
--- NOTE | 2025-05-15 15:40 | PC.NURSE ---
ATTEMPTED TO CALL REPORT AND NURSE UNAVAILABLE
[2025-05-15] MEDS: ASPIRIN EC 81 MG TABEC PO (15:42)
[2025-05-15 20:39] LABS: Partial Thromboplastin Time 75.2 Seconds (22.0-36.0)
[2025-05-15] MEDS: ATORVASTATIN CALCIUM 20 MG TABLET 40 MG PO (21:15)
[2025-05-16] VITALS: BP 114/67; PULSE 62; RESP 14; TEMP 36.1; O2SAT 94
[2025-05-16 03:22] LABS: Basophils # (Auto) 0.1 Thou/mm3 (0.0-0.2); Basophils % (Auto) 1 % (0-2.5); Eosinophils # (Auto) 0.1 Thou/mm3 (0.0-0.5); Eosinophils % (Auto) 3 % (0-10); Hematocrit 44.9 % (41.0-53.0); Hemoglobin 15.4 g/dL (13.5-16.0); Immature Granulocytes Auto 0.02 Thou/mm3 (0.00-0.00); Lymphocytes # (Auto) 2.3 Thou/mm3 (1.0-4.8); Lymphocytes % (Auto) 40 % (10-50); Mean Corpuscular HGB Conc 34.3 g/dl (31.0-37.0); Mean Corpuscular Hemoglobin 30.0 pg (25.0-35.0); Mean Corpuscular Volume 88 fL (80-100); Monocytes # (Auto) 0.5 Thou/mm3 (0.0-0.8); Monocytes % (Auto) 10 % (0-12); Neutrophils # (Auto) 2.6 Thou/mm3 (1.8-7.7); Neutrophils % (Auto) 47 % (37-80); Nucleated Red Blood Cell # 0.00 Thou/mm3 (0.00-0.00); Nucleated Red Blood Cell % 0 /100 WBC (0); Platelet Count 179 Thou/mm3 (140-440); RDW Standard Deviation 41.0 fL (35.1-43.9); Red Blood Count 5.13 Miln/mm3 (4.50-5.90); White Blood Count 5.7 Thou/mm3 (3.8-10.6)
[2025-05-16 03:42] LABS: Alanine Aminotransferase 19 U/L (10-49); Albumin, Serum 3.7 gm/dL (3.5-5.0); Albumin/Globulin Ratio 1.6 (1.2-2.2); Alkaline Phosphatase 129 U/L (46-116); Anion Gap 11 (7-16); Aspartate Amino Transferase 25 U/L (0-34); BUN/Creatinine Ratio 14 Ratio (12-20); Bilirubin,Total 0.8 mg/dL (0.3-1.2); Blood Urea Nitrogen 7 mg/dL (9-23); Calcium 9.1 mg/dL (8.3-10.6); Calcium (Corrected) 9.3 mg/dL (8.5-10.1); Carbon Dioxide 24.7 mMol/L (20.0-31.0); Chloride 107 mMol/L (98-107); Creatinine (Component) 0.5 mg/dL (0.6-1.3); Estimated Creatinine Clearance 165.5 mL/min (>60); Globulin 2.3 gm/dL (2.3-3.5); Glucose 114 mg/dL (74-106); Osmolality,Calculated 283 (275-295); Potassium 3.7 mMol/L (3.4-5.1); Sodium 143 mMol/L (136-145); Total Protein 6.0 gm/dL (5.7-8.2); eGFR > 60 See Note
[2025-05-16 03:54] LABS: Partial Thromboplastin Time 78.4 Seconds (22.0-36.0)
[2025-05-16 04:00] VITALS: BP 87/50; PULSE 57; PULSE 58; RESP 14; TEMP 36.1; O2SAT 95
[2025-05-16] MEDS: Heparin/D5w 25K 250 ML Ivpb 25,000 UNIT/250 ML BAG 7.348 UNIT IV (04:51)
[2025-05-16 05:33] VITALS: BMI 32.3
[2025-05-16 08:00] VITALS: BP 115/90; PULSE 58; PULSE 60; RESP 17; TEMP 36.1; O2SAT 97
[2025-05-16] MEDS: VALPROIC ACID SYRUP 250 MG/5 ML UDC 500 MG PO ×2 (09:21→21:37)
[2025-05-16] MEDS: POTASSIUM CHLORIDE 10% 20 MEQ/15 ML UDC 40 MEQ PO (09:21)
[2025-05-16] MEDS: Magnesium Sulfate 2 GM Ivpb 2 GM/50 ML BAG IV (09:21)
[2025-05-16 10:22] LABS: INR 1.9 (0.9-1.3); Partial Thromboplastin Time 67.2 Seconds (22.0-36.0); Prothrombin Time 20.1 Seconds (9.0-12.2)
--- NOTE | 2025-05-16 11:57 | ESPR_ITS ---
<Statement entered by García Ch MD - 05/16/25 12:17> Patient was seen and examined at bedside. I agree on the assessment and plan on this note as documented by resident Aide Knapp DO PGY1. 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 Sidhu outpatient, per his documentation patient had abnormal stress test outpatient did have outpatient cardiac catheterization planned. Coumadin discontinued, transition to heparin drip, will undergo cardiac catheterization once INR is therapeutic. Per spikemaking supervisor Dr. Sidhu no aspirin continue heparin GTT. Currently denies any chest pain, disposition telemetry pending cardiac catheterization. Case discussed with attending Dr. Bessie Cottrell. García Ch MD PGY-2 Internal Medicine Documentation for date of: 05/16/25 Subjective Subjective Interval history: No acute overnight events. Patient seen and examined at bedside, retail associate used. Patient feels well today denies any chest pain or pressure. Denies significant weakness in limbs at this time. Cardiac cath planned for tomorrow tentatively if INR<1.3. Per cardiology, continue heparin drip, no aspirin, n.p.o. after midnight.. Yesterday magnesium 1.8, repleted 2 g today. Exam Vital Signs Temp Pulse Resp BP Pulse Ox O2 Del Method 97.0 F 58 L 17 115/90 H 97 Room Air 05/16/25 08:00 05/16/25 08:00 05/16/25 08:00 05/16/25 08:00 05/16/25 08:00 05/16/25 08:00 Narrative Exam GENERAL: AOx3, no acute distress HEENT: NC/AT, mucous membranes moist, bilateral sclera anicteric, +cloudy L pupil CARDIOVASCULAR: regular rate and rhythm, S1/S2 present, no murmurs appreciated PULMONARY: clear to auscultation bilaterally, no rales/rhonchi/wheezes ABDOMINAL: soft, non-tender, non-distended, no rebound/guarding, bowel sounds present EXTREMITIES: no peripheral edema, deformed and contracted fingers bilateral hands and feet MSK: BLE 5/5 strength, BUE 5/5 strength SKIN: warm and dry, intact, no rashes NEURO: CN II-XII grossly intact, no focal deficits, alert, following commands Objective Labs 05/16/25 02:49 05/16/25 02:49 Labs: Laboratory Results - last 24 hr 05/15/25 05/15/25 05/16/25 11:55 19:48 02:49 WBC 5.7 RBC 5.13 Hgb 15.4 Hct 44.9 MCV 88 MCH 30.0 MCHC 34.3 RDW Std Deviation 41.0 Plt Count 179 Neut % (Auto) 47 Lymph % (Auto) 40 [place] % (Auto) 10 Eos % (Auto) 3 Baso % (Auto) 1 Neut # (Auto) 2.6 Lymph # (Auto) 2.3 [place] # (Auto) 0.5 Eos # (Auto) 0.1 Baso # (Auto) 0.1 Immature Gran # (Auto) 0.02 H Absolute Nucleated RBC 0.00 Immature Gran % 0 Nucleated RBC % 0 PT INR APTT 77.5 H D 75.2 H 78.4 H Sodium 143 Potassium 3.7 Chloride 107 Carbon Dioxide 24.7 Anion Gap 11 BUN 7 L Creatinine 0.5 L Estim Creat Clear Calc 165.5 eGFR > 60 BUN/Creatinine Ratio 14 Glucose 114 H Calculated Osmolality 283 Calcium 9.1 Corrected Calcium 9.3 Total Bilirubin 0.8 AST 25 ALT 19 Alkaline Phosphatase 129 H Total Protein 6.0 Albumin 3.7 Globulin 2.3 Albumin/Globulin Ratio 1.6 05/16/25 08:52 WBC RBC Hgb Hct MCV MCH MCHC RDW Std Deviation Plt Count Neut % (Auto) Lymph % (Auto) [place] % (Auto) Eos % (Auto) Baso % (Auto) Neut # (Auto) Lymph # (Auto) [place] # (Auto) Eos # (Auto) Baso # (Auto) Immature Gran # (Auto) Absolute Nucleated RBC Immature Gran % Nucleated RBC % PT 20.1 H D INR 1.9 H APTT 67.2 H D Sodium Potassium Chloride Carbon Dioxide Anion Gap BUN Creatinine Estim Creat Clear Calc eGFR BUN/Creatinine Ratio Glucose Calculated Osmolality Calcium Corrected Calcium Total Bilirubin AST ALT Alkaline Phosphatase Total Protein Albumin Globulin Albumin/Globulin Ratio Quality Measures Quality Measures none Assessment & Plan Assessment Current Active Medications: Generic Name Dose Route Start Last Admin Trade Name Freq PRN Reason Stop Dose Admin Acetaminophen 650 mg 05/14/25 20:11 Acetaminophen 325 Mg Tablet PO 06/13/25 20:10 Q6H PRN PAIN SCALE 1-3 (mild Atorvastatin Calcium 40 mg 05/14/25 21:00 05/15/25 21:15 Atorvastatin Calcium 20 Mg Tablet PO 06/13/25 20:59 40 mg HS GABE Administration Heparin Sodium/Dextrose 25,000 unit in 250 mls @ 9.798 mls/hr 05/14/25 19:30 05/16/25 10:50 Heparin In D5w Ivpb IV 05/28/25 19:29 9 units/kg/hr .Q24H GABE 7.348 mls/hr Titration Protocol 12 UNITS/KG/HR Ondansetron HCl 4 mg 05/14/25 20:11 Ondansetron Inj 2 Mg/Ml Inj 2 Ml IVP 06/13/25 20:10 Q6H PRN NAUSEA OR VOMITING Protocol Sennosides 1 tab 05/14/25 22:53 Senna Tablet PO 06/13/25 22:52 QDAY PRN CONSTIPATION Protocol Tramadol HCl 50 mg 05/14/25 20:11 Tramadol Hcl 50 Mg Tablet PO 05/19/25 20:10 Q6HR PRN PAIN SCALE 4-6 (Moderate Valproic Acid 500 mg 05/14/25 21:15 05/16/25 09:21 Valproic Acid Syrup 250 Mg/5 Ml Udc PO 06/13/25 21:14 500 mg BID GABE Administration Plan Mr. Brandt is a 54-year-old male with past medical history significant for childhood polio with deformities of the hands and legs, TBI s/p PRESS FEEDER shunt, mitral and aortic mechanical valve replacement on warfarin, hypertension, dyslipidemia, seizure disorder presented to the ED on 05/14 with chief complain intermittent pressure-like chest pain. Admitted for ACS workup and management. #Unstable angina #R/o ACS #Valvular heart disease, s/p mechanical AV and MV replacement #Prior thromboembolism Patient endorses pressure-like pain that is intermittent at rest. Recently patient completed a stress test which was abnormal value. Was scheduled for outpatient cardiac cath however due to significant chest pain he presented to the ED. PMH significant for valvular heart disease s/p aortic valve and mitral valve replacement and hyperlipidemia. Likely unstable angina ddx: coronary vasospasm, Troponin WNL and EKG unremarkable. Cholesterol 119, HDL38 Chest x-ray showed median sternotomy wires of frame, minor prominence left ventricle, bilateral probable ventriculoperitoneal shunt tubes. No pneumonia or pulmonary edema. Per cardiology hold warfarin for now and start heparin for therapeutic PTT (Therapeutic PTT is important as pt had prior thromboembolism when anticoagulation is not therapeutic, recommend echo, no plavix Plan - Atorvastatin 40 mg qHS - Daily INR - Continue monitoring for acute changes in chest pain presentation - Echo ordered - Maintain potassium >4.0 and magnesium >2.0 - Cardiology consulted, recs appreciated: Cardiac cath tentatively planned for Saturday if INR >1.3, no ASA, continue heparin, NPO after midnight #Seizures disorders 10/25 #TBI s/p PRESS FEEDER shunt Patient had seizure disorder post s/p traumatic brain injury in 2013 Plan - Continue home valproic acid 500 mg BID for seizure disorder - CTM for seizures #Hypertension #Hyperlipemia Patient has a history of hypertension being managed on amlodipine 2.5 mg p.o. daily Plan - Continue to monitor blood pressure - Hold amlodipine 2.5 mg iso soft BP - Atorvastatin as above #Wheelchair-bound status #Deformities of bilateral fingers, hands, and feet / childhood polio Hospital Management: Disposition: undergoing work-up and management of unstable angina concerning for ACS Diet: Cardiac GI Prophylaxis: N/A Bowel Prophylaxis: Senna DVT Prophylaxis: Heparin CODE STATUS: Full Code Plan of care discussed with attending Dr. Patton, and PGY-2 Dr. Ch. Aide Knapp, DO PGY-1 Internal Medicine Attending Provider Attestation/Addendum I attest that I was physically present for the evaluation, physical examination, lab and imaging review of the patient with the residents. I discussed the case with the residents and agree with the findings and plans of care as documented above. At bedside today, patient appears comfortable, denies any new complaints. Chest pain has resolved currently. Patient had a abnormal stress test outpatient but did not had any cardiac catheterization. Continues to be on heparin drip and warfarin has been discontinued.. Discussed with cardiology recommended to continue with heparin drip, atorvastatin and stop aspirin. Once INR is less than 1.3, patient will be planned for cardiac catheterization with cardiology. We will keep him n.p.o. after overnight in case INR improves tomorrow. Continues to be on valproic acid for history of seizure. Blood pressure is soft this morning, we will hold amlodipine as well. Bessie Cottrell MD
[2025-05-16 12:00] VITALS: BP 109/70; PULSE 65; PULSE 75; RESP 15; TEMP 36.6; O2SAT 94
[2025-05-16 16:00] VITALS: BP 133/74; PULSE 65; PULSE 66; RESP 18; TEMP 36.3; O2SAT 94
--- NOTE | 2025-05-16 16:11 | PC.SS ---
Per afternoon rounding note: Cath tomorrow. No d/c at this time. Needs initial
[2025-05-16 20:00] VITALS: BP 119/66; PULSE 67; PULSE 68; RESP 15; TEMP 36.8; O2SAT 97
[2025-05-16] MEDS: ATORVASTATIN CALCIUM 20 MG TABLET 40 MG PO (21:37)
[2025-05-17] VITALS (8 sets, daily range): BP systolic 99–123; BP diastolic 61–78; PULSE 63–95; RESP 10–23; TEMP 36.1–36.7; O2SAT 95–97; BMI 32.3; BMI 32.1
--- NOTE | 2025-05-17 08:17 | PD.IMPROG ---
Documentation for date of: 05/17/25 Subjective Subjective Interval history: pt waiting normalization of INR before heart cath Exam Vital Signs Temp Pulse Resp BP Pulse Ox O2 Del Method 97.1 F 63 10 L 116/78 97 Room Air 05/17/25 07:58 05/17/25 07:58 05/17/25 07:58 05/17/25 07:58 05/17/25 07:58 05/17/25 07:58 Routine HEENT Exam Head: Present normocephalic and atraumatic Eye: Present EOMI and PERRL ENT: Present mucous membranes moist Routine Neck Exam Neck: Present supple and trachea midline Routine Respiratory Exam Respiratory: Present chest non-tender, lungs clear, normal breath sounds and no resp distress Routine Cardiovascular Exam Cardiovascular: Present RRR Routine Abdominal Exam Abdominal: Present soft and normoactive bowel sounds Routine Extremities Exam Extremities: Present full ROM Routine Skin Exam Skin: Present intact, dry and warm Routine Neurological Exam Neurological: Present alert, oriented X3 and CN II-XII intact Routine Psychiatric Exam Psychiatric: Present normal affect and normal thought process Objective Labs 05/16/25 02:49 05/16/25 02:49 Labs: Laboratory Results - last 24 hr 05/16/25 08:52 PT 20.1 H D INR 1.9 H APTT 67.2 H D Assessment & Plan A&P Narrative pt had out pt stress test which showed ischemia pt s/p Mechanical aortic and mitral valve on coumadin anticoagulation need to d/c coumadin and start on heparin drip for heart cath therapeutic PTT is important as pt had prior thromboembolism when anticoagulation is not therapeutic recommend echo Time Spent With Patient Time: Total time spent is greater than 50% in coordination of care (as documented) at patient's floor/unit and/or counseling patient:
[2025-05-17 08:27] LABS: Basophils # (Auto) 0.1 Thou/mm3 (0.0-0.2); Basophils % (Auto) 1 % (0-2.5); Eosinophils # (Auto) 0.1 Thou/mm3 (0.0-0.5); Eosinophils % (Auto) 2 % (0-10); Hematocrit 45.7 % (41.0-53.0); Hemoglobin 15.6 g/dL (13.5-16.0); Immature Granulocytes Auto 0.02 Thou/mm3 (0.00-0.00); Lymphocytes # (Auto) 1.7 Thou/mm3 (1.0-4.8); Lymphocytes % (Auto) 36 % (10-50); Mean Corpuscular HGB Conc 34.1 g/dl (31.0-37.0); Mean Corpuscular Hemoglobin 30.1 pg (25.0-35.0); Mean Corpuscular Volume 88 fL (80-100); Monocytes # (Auto) 0.5 Thou/mm3 (0.0-0.8); Monocytes % (Auto) 10 % (0-12); Neutrophils # (Auto) 2.4 Thou/mm3 (1.8-7.7); Neutrophils % (Auto) 51 % (37-80); Nucleated Red Blood Cell # 0.00 Thou/mm3 (0.00-0.00); Nucleated Red Blood Cell % 0 /100 WBC (0); Platelet Count 175 Thou/mm3 (140-440); RDW Standard Deviation 42.7 fL (35.1-43.9); Red Blood Count 5.18 Miln/mm3 (4.50-5.90); White Blood Count 4.7 Thou/mm3 (3.8-10.6)
[2025-05-17] MEDS: VALPROIC ACID SYRUP 250 MG/5 ML UDC 500 MG PO ×2 (08:42→20:42)
[2025-05-17] MEDS: SERTRALINE HCL 25 MG TABLET 50 MG PO (08:42)
[2025-05-17 08:49] LABS: Alanine Aminotransferase 25 U/L (10-49); Albumin, Serum 3.8 gm/dL (3.5-5.0); Albumin/Globulin Ratio 1.3 (1.2-2.2); Alkaline Phosphatase 129 U/L (46-116); Anion Gap 9 (7-16); Aspartate Amino Transferase 30 U/L (0-34); BUN/Creatinine Ratio 12 Ratio (12-20); Bilirubin,Total 0.9 mg/dL (0.3-1.2); Blood Urea Nitrogen 6 mg/dL (9-23); Calcium 9.2 mg/dL (8.3-10.6); Calcium (Corrected) 9.4 mg/dL (8.5-10.1); Carbon Dioxide 28.6 mMol/L (20.0-31.0); Chloride 105 mMol/L (98-107); Creatinine (Component) 0.5 mg/dL (0.6-1.3); Estimated Creatinine Clearance 174.1 mL/min (>60); Globulin 2.9 gm/dL (2.3-3.5); Glucose 107 mg/dL (74-106); Magnesium 1.9 mg/dL (1.6-2.6); Osmolality,Calculated 282 (275-295); Potassium 4.6 mMol/L (3.4-5.1); Sodium 143 mMol/L (136-145); Total Protein 6.7 gm/dL (5.7-8.2); eGFR > 60 See Note
[2025-05-17 09:04] LABS: INR 1.3 (0.9-1.3); Partial Thromboplastin Time 54.7 Seconds (22.0-36.0); Prothrombin Time 14.0 Seconds (9.0-12.2)
--- NOTE | 2025-05-17 10:03 | PC.SS ---
Follow up note: Pending Cardio Cath. Possible d/c today.
--- NOTE | 2025-05-17 11:08 | ESPR_ITS ---
<Statement entered by Bessie Cottrell MD - 05/18/25 16:14> I attest that I was physically present for the evaluation, physical examination, lab and imaging review of the patient with the residents. I discussed the case with the residents and agree with the findings and plans of care as documented below. Bessie Cottrell MD <Statement entered by Lora Edmondson MD - 05/18/25 12:28> Pt is seen at bedside, saturating on room air, denies shortness of breath, chest pain or palpitations. Will continue Heparin drip. Pt is scheduled for cardiac cath on Saturday. Patient was seen and examined by me personally. I have directly supervised and reviewed documentation by the team resident and agree with its findings. ------- Plan of care was discussed with the attending, Dr. Ronit Edmondson, PGY-2 Documentation for date of: 05/17/25 Subjective Subjective Interval history: No acute events overnight Today, patient was seen an examined at bedside with his family present. Saturating well on room air. Vitals are within normal limit. He has no acute complains. Denies chest pain, palpitation, shortness of breath, abdominal plain and urinary symptom. AM labs reviewed. Significant for INR 1.3 [address] of [address] Stevens consulted, cardiac angiogram postponed to morning. Resume cardiac diet. Continue heparin drip Exam Vital Signs Temp Pulse Resp BP Pulse Ox O2 Del Method 97.1 F 63 10 L 116/78 97 Room Air 05/17/25 07:58 05/17/25 08:00 05/17/25 07:58 05/17/25 07:58 05/17/25 07:58 05/17/25 07:58 Narrative Exam GENERAL: AOx3, no acute distress HEENT: NC/AT, mucous membranes moist, bilateral sclera anicteric, +cloudy L pupil CARDIOVASCULAR: regular rate and rhythm, S1/S2 present, no murmurs appreciated PULMONARY: clear to auscultation bilaterally, no rales/rhonchi/wheezes ABDOMINAL: soft, non-tender, non-distended, no rebound/guarding, bowel sounds present EXTREMITIES: no peripheral edema, deformed and contracted fingers bilateral hands and feet MSK: BLE 5/5 strength, BUE 5/5 strength SKIN: warm and dry, intact, no rashes NEURO: CN II-XII grossly intact, no focal deficits, alert, following commands Objective Labs 05/17/25 07:55 05/17/25 07:55 Labs: Laboratory Results - last 24 hr 05/17/25 07:55 WBC 4.7 RBC 5.18 Hgb 15.6 Hct 45.7 MCV 88 MCH 30.1 MCHC 34.1 RDW Std Deviation 42.7 Plt Count 175 Neut % (Auto) 51 Lymph % (Auto) 36 [place] % (Auto) 10 Eos % (Auto) 2 Baso % (Auto) 1 Neut # (Auto) 2.4 Lymph # (Auto) 1.7 [place] # (Auto) 0.5 Eos # (Auto) 0.1 Baso # (Auto) 0.1 Immature Gran # (Auto) 0.02 H Absolute Nucleated RBC 0.00 Immature Gran % 0 Nucleated RBC % 0 PT 14.0 H D INR 1.3 APTT 54.7 H D Sodium 143 Potassium 4.6 D Chloride 105 Carbon Dioxide 28.6 Anion Gap 9 BUN 6 L Creatinine 0.5 L Estim Creat Clear Calc 174.1 eGFR > 60 BUN/Creatinine Ratio 12 Glucose 107 H Calculated Osmolality 282 Calcium 9.2 Corrected Calcium 9.4 Magnesium 1.9 Total Bilirubin 0.9 AST 30 ALT 25 Alkaline Phosphatase 129 H Total Protein 6.7 Albumin 3.8 Globulin 2.9 Albumin/Globulin Ratio 1.3 Quality Measures Quality Measures none Assessment & Plan Assessment Current Active Medications: Generic Name Dose Route Start Last Admin Trade Name Freq PRN Reason Stop Dose Admin Acetaminophen 650 mg 05/14/25 20:11 Acetaminophen 325 Mg Tablet PO 06/13/25 20:10 Q6H PRN PAIN SCALE 1-3 (mild Atorvastatin Calcium 40 mg 05/14/25 21:00 05/16/25 21:37 Atorvastatin Calcium 20 Mg Tablet PO 06/13/25 20:59 40 mg HS GABE Administration Heparin Sodium/Dextrose 25,000 unit in 250 mls @ 9.798 mls/hr 05/14/25 19:30 05/17/25 09:44 Heparin In D5w Ivpb IV 05/28/25 19:29 9 units/kg/hr .Q24H GABE 7.348 mls/hr Titration Protocol 12 UNITS/KG/HR Ondansetron HCl 4 mg 05/14/25 20:11 Ondansetron Inj 2 Mg/Ml Inj 2 Ml IVP 06/13/25 20:10 Q6H PRN NAUSEA OR VOMITING Protocol Sennosides 1 tab 05/14/25 22:53 Senna Tablet PO 06/13/25 22:52 QDAY PRN CONSTIPATION Protocol Sertraline HCl 50 mg 05/17/25 09:00 05/17/25 08:42 Sertraline Hcl 25 Mg Tablet PO 06/16/25 08:59 50 mg QDAY GABE Administration Tramadol HCl 50 mg 05/14/25 20:11 Tramadol Hcl 50 Mg Tablet PO 05/19/25 20:10 Q6HR PRN PAIN SCALE 4-6 (Moderate Valproic Acid 500 mg 05/14/25 21:15 05/17/25 08:42 Valproic Acid Syrup 250 Mg/5 Ml Udc PO 06/13/25 21:14 500 mg BID GABE Administration Plan Mr. Brandt is a 54-year-old male with past medical history significant for childhood polio with deformities of the hands and legs, TBI s/p DISTRESSER shunt, mitral and aortic mechanical valve replacement on warfarin, hypertension, dyslipidemia, seizure disorder presented to the ED on 05/14 with chief complain intermittent pressure-like chest pain. Admitted for ACS workup and management. #Unstable angina #R/o ACS #Valvular heart disease, s/p mechanical AV and MV replacement #Prior thromboembolism Patient endorses pressure-like pain that is intermittent at rest. Recently patient completed a stress test which was abnormal value. Was scheduled for outpatient cardiac cath however due to significant chest pain he presented to the ED. PMH significant for valvular heart disease s/p aortic valve and mitral valve replacement and hyperlipidemia. Likely unstable angina ddx: coronary vasospasm, Troponin WNL and EKG unremarkable. Cholesterol 119, HDL38 Chest x-ray showed median sternotomy wires of frame, minor prominence left ventricle, bilateral probable ventriculoperitoneal shunt tubes. No pneumonia or pulmonary edema. Per cardiology hold warfarin for now and start heparin for therapeutic PTT (Therapeutic PTT is important as pt had prior thromboembolism when anticoagulation is not therapeutic, recommend echo, no plavix ECHO (05/14/25)- Estimated EF at 55%. The RV size is mildy increased with normal systolic function. Moderately increased LA volume 43.7 mL/m?. Plan - Atorvastatin 40 mg qHS - Daily INR - Continue monitoring for acute changes in chest pain presentation - Echo, done - Maintain potassium >4.0 and magnesium >2.0 - Cardiology consulted, recs appreciated: Cardiac cath tentatively planned for We morning if INR >1.3, no ASA, continue heparin #Seizures disorders 10/25 #TBI s/p DISTRESSER shunt Patient had seizure disorder post s/p traumatic brain injury in 2013 Plan - Continue home valproic acid 500 mg BID for seizure disorder - Continue to monitor for seizures #Hypertension #Hyperlipemia Patient has a history of hypertension being managed on amlodipine 2.5 mg p.o. daily Plan - Continue to monitor blood pressure - Hold amlodipine 2.5 mg iso soft BP - Atorvastatin as above #Wheelchair-bound status #Deformities of bilateral fingers, hands, and feet 10/25 childhood polio Hospital Management: Disposition: undergoing work-up and management of unstable angina concerning for ACS Diet: Cardiac GI Prophylaxis: N/A Bowel Prophylaxis: Senna DVT Prophylaxis: Heparin CODE STATUS: Full Code Patient seen and assessed under supervision of attending physician Dr. Cottrell and discuss with senior resident Dr. Edmondson PGY-2 Elizabeth Barrett MD PGY-1, Internal Medicine
[2025-05-17] MEDS: Heparin/D5w 25K 250 ML Ivpb 25,000 UNIT/250 ML BAG 7.348 UNIT IV (17:32)
[2025-05-17] MEDS: ATORVASTATIN CALCIUM 20 MG TABLET 40 MG PO (20:42)
[2025-05-18] VITALS: BP 113/52; PULSE 65; PULSE 68; RESP 16; TEMP 36.4; O2SAT 98
[2025-05-18 04:00] VITALS: BP 101/52; PULSE 62; RESP 19; TEMP 36.2; O2SAT 97
[2025-05-18 05:35] VITALS: BMI 32.1
[2025-05-18 06:17] LABS: Basophils # (Auto) 0.1 Thou/mm3 (0.0-0.2); Basophils % (Auto) 1 % (0-2.5); Eosinophils # (Auto) 0.1 Thou/mm3 (0.0-0.5); Eosinophils % (Auto) 2 % (0-10); Hematocrit 45.7 % (41.0-53.0); Hemoglobin 15.2 g/dL (13.5-16.0); Immature Granulocytes Auto 0.02 Thou/mm3 (0.00-0.00); Lymphocytes # (Auto) 1.9 Thou/mm3 (1.0-4.8); Lymphocytes % (Auto) 36 % (10-50); Mean Corpuscular HGB Conc 33.3 g/dl (31.0-37.0); Mean Corpuscular Hemoglobin 30.0 pg (25.0-35.0); Mean Corpuscular Volume 90 fL (80-100); Monocytes # (Auto) 0.5 Thou/mm3 (0.0-0.8); Monocytes % (Auto) 10 % (0-12); Neutrophils # (Auto) 2.7 Thou/mm3 (1.8-7.7); Neutrophils % (Auto) 50 % (37-80); Nucleated Red Blood Cell # 0.00 Thou/mm3 (0.00-0.00); Nucleated Red Blood Cell % 0 /100 WBC (0); Platelet Count 167 Thou/mm3 (140-440); RDW Standard Deviation 43.6 fL (35.1-43.9); Red Blood Count 5.07 Miln/mm3 (4.50-5.90); White Blood Count 5.3 Thou/mm3 (3.8-10.6)
[2025-05-18 06:39] LABS: INR 1.1 (0.9-1.3); Partial Thromboplastin Time 49.8 Seconds (22.0-36.0); Prothrombin Time 12.2 Seconds (9.0-12.2)
[2025-05-18 06:44] LABS: Alanine Aminotransferase 42 U/L (10-49); Albumin, Serum 4.0 gm/dL (3.5-5.0); Albumin/Globulin Ratio 1.7 (1.2-2.2); Alkaline Phosphatase 134 U/L (46-116); Anion Gap 11 (7-16); Aspartate Amino Transferase 46 U/L (0-34); BUN/Creatinine Ratio 18 Ratio (12-20); Bilirubin,Total 0.8 mg/dL (0.3-1.2); Blood Urea Nitrogen 11 mg/dL (9-23); Calcium 9.7 mg/dL (8.3-10.6); Calcium (Corrected) 9.7 mg/dL (8.5-10.1); Carbon Dioxide 28.1 mMol/L (20.0-31.0); Chloride 104 mMol/L (98-107); Creatinine (Component) 0.6 mg/dL (0.6-1.3); Estimated Creatinine Clearance 145.1 mL/min (>60); Globulin 2.4 gm/dL (2.3-3.5); Glucose 110 mg/dL (74-106); Magnesium 1.8 mg/dL (1.6-2.6); Osmolality,Calculated 285 (275-295); Potassium 4.6 mMol/L (3.4-5.1); Sodium 143 mMol/L (136-145); Total Protein 6.4 gm/dL (5.7-8.2); eGFR > 60 See Note
[2025-05-18 08:00] VITALS: BP 109/69; PULSE 60; PULSE 77; RESP 19; TEMP 36.6; O2SAT 97
--- NOTE | 2025-05-18 08:07 | PD.IMPROG ---
Documentation for date of: 05/18/25 Subjective Subjective Interval history: INR normalized to 1.3 Heart cath tomorrow Exam Vital Signs Temp Pulse Resp BP Pulse Ox O2 Del Method 97.1 F 62 19 101/52 L 97 Room Air 05/18/25 04:00 05/18/25 04:00 05/18/25 04:00 05/18/25 04:00 05/18/25 04:00 05/18/25 04:00 Routine HEENT Exam Head: Present normocephalic and atraumatic Eye: Present EOMI and PERRL ENT: Present mucous membranes moist Routine Neck Exam Neck: Present supple and trachea midline Routine Respiratory Exam Respiratory: Present chest non-tender, lungs clear, normal breath sounds and no resp distress Routine Cardiovascular Exam Cardiovascular: Present RRR Routine Abdominal Exam Abdominal: Present soft and normoactive bowel sounds Routine Extremities Exam Extremities: Present full ROM Routine Skin Exam Skin: Present intact, dry and warm Routine Neurological Exam Neurological: Present alert, oriented X3 and CN II-XII intact Routine Psychiatric Exam Psychiatric: Present normal affect and normal thought process Objective Labs 05/18/25 05:30 05/18/25 05:30 Labs: Laboratory Results - last 24 hr 05/17/25 05/18/25 07:55 05:30 WBC 4.7 5.3 RBC 5.18 5.07 Hgb 15.6 15.2 Hct 45.7 45.7 MCV 88 90 MCH 30.1 30.0 MCHC 34.1 33.3 RDW Std Deviation 42.7 43.6 Plt Count 175 167 Neut % (Auto) 51 50 Lymph % (Auto) 36 36 [place] % (Auto) 10 10 Eos % (Auto) 2 2 Baso % (Auto) 1 1 Neut # (Auto) 2.4 2.7 Lymph # (Auto) 1.7 1.9 [place] # (Auto) 0.5 0.5 Eos # (Auto) 0.1 0.1 Baso # (Auto) 0.1 0.1 Immature Gran # (Auto) 0.02 H 0.02 H Absolute Nucleated RBC 0.00 0.00 Immature Gran % 0 0 Nucleated RBC % 0 0 PT 14.0 H D 12.2 INR 1.3 1.1 APTT 54.7 H D 49.8 H Sodium 143 143 Potassium 4.6 D 4.6 Chloride 105 104 Carbon Dioxide 28.6 28.1 Anion Gap 9 11 BUN 6 L 11 Creatinine 0.5 L 0.6 Estim Creat Clear Calc 174.1 145.1 eGFR > 60 > 60 BUN/Creatinine Ratio 12 18 Glucose 107 H 110 H Calculated Osmolality 282 285 Calcium 9.2 9.7 Corrected Calcium 9.4 9.7 Magnesium 1.9 1.8 Total Bilirubin 0.9 0.8 AST 30 46 H ALT 25 42 Alkaline Phosphatase 129 H 134 H Total Protein 6.7 6.4 Albumin 3.8 4.0 Globulin 2.9 2.4 Albumin/Globulin Ratio 1.3 1.7 Assessment & Plan A&P Narrative Continue heparin drip Heart cath tomorrow INR normalized to 1.3 Time Spent With Patient Time: Total time spent is greater than 50% in coordination of care (as documented) at patient's floor/unit and/or counseling patient:
[2025-05-18] MEDS: HEPARIN SOD INJ 5000 UNIT/ML VIAL 2000 UNIT IV (08:27)
[2025-05-18] MEDS: VALPROIC ACID SYRUP 250 MG/5 ML UDC 500 MG PO ×2 (08:28→20:13)
[2025-05-18] MEDS: Magnesium Sulfate 4 GM Ivpb 4 GM/50 ML BAG IV (08:29)
[2025-05-18] MEDS: SERTRALINE HCL 25 MG TABLET 50 MG PO (08:48)
--- NOTE | 2025-05-18 10:22 | ESPR_ITS ---
<Statement entered by Bessie Cottrell MD - 05/20/25 15:08> I attest that I was physically present for the evaluation, physical examination, lab and imaging review of the patient with the residents. I discussed the case with the residents and agree with the findings and plans of care as documented below. Bessie Cottrell MD <Statement entered by Lora Edmondson MD - 05/18/25 17:09> Pt is seen at bedside, denies chest pain. Will continue heparin drip. Pt is scheduled for cardiac cath with Dr. Stevens tomorrow. NPO after midnight. Patient was seen and examined by me personally. I have directly supervised and reviewed documentation by the team resident and agree with its findings. ------- Plan of care was discussed with the attending, Dr. Ronit Edmondson, PGY-2 Documentation for date of: 05/18/25 Subjective Subjective Interval history: No acute events overnight. Today pt was seen and examined at beside, no acute complains. Denies chest pain, palpitation, nausea or vomiting, abdominal pain, urinary changes. Vitals within normal limit. Saturating well on room air. A.m. labs reviewed. Magnesium repleted. INR 1.1. APTT 49.8 downtrending. Continue heparin drip NPO after midnight. Cardiac angiogram tomorrow. Exam Vital Signs Temp Pulse Resp BP Pulse Ox O2 Del Method 97.8 F 60 19 109/69 97 Room Air 05/18/25 08:00 05/18/25 08:00 05/18/25 08:00 05/18/25 08:00 05/18/25 08:00 05/18/25 08:00 Narrative Exam GENERAL: AOx3, no acute distress HEENT: NC/AT, mucous membranes moist, bilateral sclera anicteric, +cloudy L pupil CARDIOVASCULAR: regular rate and rhythm, S1/S2 present, no murmurs appreciated PULMONARY: clear to auscultation bilaterally, no rales/rhonchi/wheezes ABDOMINAL: soft, non-tender, non-distended, no rebound/guarding, bowel sounds present EXTREMITIES: no peripheral edema, deformed and contracted fingers bilateral hands and feet MSK: BLE 5/5 strength, BUE 5/5 strength SKIN: warm and dry, intact, no rashes NEURO: CN II-XII grossly intact, no focal deficits, alert, following commands Objective Labs 05/18/25 05:30 05/18/25 05:30 Labs: Laboratory Results - last 24 hr 05/18/25 05:30 WBC 5.3 RBC 5.07 Hgb 15.2 Hct 45.7 MCV 90 MCH 30.0 MCHC 33.3 RDW Std Deviation 43.6 Plt Count 167 Neut % (Auto) 50 Lymph % (Auto) 36 [place] % (Auto) 10 Eos % (Auto) 2 Baso % (Auto) 1 Neut # (Auto) 2.7 Lymph # (Auto) 1.9 [place] # (Auto) 0.5 Eos # (Auto) 0.1 Baso # (Auto) 0.1 Immature Gran # (Auto) 0.02 H Absolute Nucleated RBC 0.00 Immature Gran % 0 Nucleated RBC % 0 PT 12.2 INR 1.1 APTT 49.8 H Sodium 143 Potassium 4.6 Chloride 104 Carbon Dioxide 28.1 Anion Gap 11 BUN 11 Creatinine 0.6 Estim Creat Clear Calc 145.1 eGFR > 60 BUN/Creatinine Ratio 18 Glucose 110 H Calculated Osmolality 285 Calcium 9.7 Corrected Calcium 9.7 Magnesium 1.8 Total Bilirubin 0.8 AST 46 H ALT 42 Alkaline Phosphatase 134 H Total Protein 6.4 Albumin 4.0 Globulin 2.4 Albumin/Globulin Ratio 1.7 Quality Measures Quality Measures VTE prophylaxis Assessment & Plan Assessment Current Active Medications: Generic Name Dose Route Start Last Admin Trade Name Freq PRN Reason Stop Dose Admin Acetaminophen 650 mg 05/14/25 20:11 Acetaminophen 325 Mg Tablet PO 06/13/25 20:10 Q6H PRN PAIN SCALE 1-3 (mild Atorvastatin Calcium 40 mg 05/14/25 21:00 05/17/25 20:42 Atorvastatin Calcium 20 Mg Tablet PO 06/13/25 20:59 40 mg HS GABE Administration Heparin Sodium/Dextrose 25,000 unit in 250 mls @ 9.798 mls/hr 05/14/25 19:30 05/18/25 07:56 Heparin In D5w Ivpb IV 05/28/25 19:29 11 units/kg/hr .Q24H GABE 8.981 mls/hr Titration Protocol 12 UNITS/KG/HR Magnesium Sulfate 4 gm in 50 mls @ 12.5 mls/hr 05/18/25 07:46 08/26/25 08:29 Magnesium Sulfate Ivpb IV 05/18/25 11:45 12.5 mls/hr X1 ONE Administration Ondansetron HCl 4 mg 05/14/25 20:11 Ondansetron Inj 2 Mg/Ml Inj 2 Ml IVP 06/13/25 20:10 Q6H PRN NAUSEA OR VOMITING Protocol Sennosides 1 tab 05/14/25 22:53 Senna Tablet PO 06/13/25 22:52 QDAY PRN CONSTIPATION Protocol Sertraline HCl 50 mg 05/17/25 09:00 05/18/25 08:48 Sertraline Hcl 25 Mg Tablet PO 06/16/25 08:59 50 mg QDAY GABE Administration Tramadol HCl 50 mg 05/14/25 20:11 Tramadol Hcl 50 Mg Tablet PO 05/19/25 20:10 Q6HR PRN PAIN SCALE 4-6 (Moderate Valproic Acid 500 mg 05/14/25 21:15 05/18/25 08:28 Valproic Acid Syrup 250 Mg/5 Ml Udc PO 06/13/25 21:14 500 mg BID GABE Administration Plan Mr. 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 Admitted for ACS workup and management. #Unstable angina #R/o ACS #Valvular heart disease, s/p mechanical AV and MV replacement #Prior thromboembolism Patient endorses pressure-like pain that is intermittent at rest. Recently patient completed a stress test which was abnormal value. Was scheduled for outpatient cardiac cath however due to significant chest pain he presented to the ED. PMH significant for valvular heart disease s/p aortic valve and mitral valve replacement and hyperlipidemia. Likely unstable angina ddx: coronary vasospasm, Troponin WNL and EKG unremarkable. Cholesterol 119, HDL38 Chest x-ray showed median sternotomy wires of frame, minor prominence left ventricle, bilateral probable ventriculoperitoneal shunt tubes. No pneumonia or pulmonary edema. Per cardiology hold warfarin for now and start heparin for therapeutic PTT (Therapeutic PTT is important as pt had prior thromboembolism when anticoagulation is not therapeutic, recommend echo, no plavix ECHO (05/14/25)- Estimated EF at 55%. The RV size is mildy increased with normal systolic function. Moderately increased LA volume 43.7 mL/m?. Plan - Atorvastatin 40 mg qHS - Daily INR - Continue monitoring for acute changes in chest pain presentation - Echo, done - Maintain potassium >4.0 and magnesium >2.0 - Cardiology consulted, recs appreciated: cardiac cath tomorrow, no ASA, continue heparin, NPO after midnight #Seizures disorders 2/ #TBI s/p AIR CONDITIONER INSTALLER HELPER shunt Patient had seizure disorder post s/p traumatic brain injury in 2013 Plan - Continue home valproic acid 500 mg BID for seizure disorder - Continue to monitor for seizures #Hypertension #Hyperlipemia Patient has a history of hypertension being managed on amlodipine 2.5 mg p.o. daily Plan - Continue to monitor blood pressure - Hold amlodipine 2.5 mg in setting of soft BP - Atorvastatin as above #Wheelchair-bound status #Deformities of bilateral fingers, hands, and feet 2/2 childhood polio Hospital Management: Disposition: Cardiac cath tomorrow AM Diet: NPO after midnight GI Prophylaxis: N/A Bowel Prophylaxis: Senna DVT Prophylaxis: Heparin CODE STATUS: Full Code Patient seen and assessed under supervision of attending physician and discuss with senior resident Dr. Edmondson PGY-2 Elizabeth Barrett MD PGY-1, Internal Medicine
--- NOTE | 2025-05-18 11:35 | PC.SS ---
SS spoke to patient's sisterMena regarding his d/c plan (pt was taking a bed bath). Pt is alert/oriented. Pt was admitted for Chest Pain. Sister, confirmed patient's demographic and contact information is correct on facesheet. Pt resides with his sister, Mena. Pt transfers with assistance into wheelchair. Pt also requires assistance with all ADLs. Patient's sisterMena helps care for pt at home. Patient utilizes [facility] pharmacy on [address]. Sister, Mena Brandt states she is patient's medical decision maker if he is unable (pt has confirmed). SS provided verbal d/c options for d/c to home or SNF. Sister refused SNF for pt and her choice is for pt to return home upon d/c. Per sister, pt is not diabetic and is not on dialysis. Sister states she will provide transportation home. Pt followed up last week with PCP. Pt has wheelchair and hospital bed. Sister is requesting a commode. D/C plan: Return home Next of Kin: Mena Brandt, sister, phone# [phone] PCP: Dr. Ti Lopez Address: Correct on facesheet Sister states pt has applied for Medical in the past but was declined due to being over income.
[2025-05-18 12:00] VITALS: BP 113/71; PULSE 63; PULSE 67; RESP 19; TEMP 36.3; O2SAT 95
--- NOTE | 2025-05-18 13:19 | PC.SS ---
Bedside Commode Patient is physically incapable of utilizing regular toilet facilities because his or her diagnosis confines the patient to a single room. Patient is confined to a single level, and there is no toilet on that level; patient cannot access the toilet facilities in a timely manner due to lack of ambulation.
--- NOTE | 2025-05-18 13:25 | PC.SS ---
SS has faxed DME order for commode. Pt has [employer], Health Insurance and they utilize [facility]. [facility] is not on [facility]. Sister is aware DME is not guaranteed. SS provided pt with [facility] and sister is aware.
[2025-05-18 15:53] LABS: Partial Thromboplastin Time 61.6 Seconds (22.0-36.0)
[2025-05-18 16:00] VITALS: BP 118/73; PULSE 68; RESP 17; TEMP 37; O2SAT 95
[2025-05-18 20:00] VITALS: BP 122/79; PULSE 70; PULSE 71; RESP 19; TEMP 36.1; O2SAT 97
[2025-05-18] MEDS: ATORVASTATIN CALCIUM 20 MG TABLET 40 MG PO (20:13)
[2025-05-18] MEDS: Heparin/D5w 25K 250 ML Ivpb 25,000 UNIT/250 ML BAG 8.981 UNIT IV (22:39)
[2025-05-19] VITALS (14 sets, daily range): BP systolic 100–145; BP diastolic 60–79; PULSE 58–73; RESP 13–21; TEMP 36.1–36.8; O2SAT 92–97; BMI 32.1
[2025-05-19 06:28] LABS: Basophils # (Auto) 0.1 Thou/mm3 (0.0-0.2); Basophils % (Auto) 1 % (0-2.5); Eosinophils # (Auto) 0.1 Thou/mm3 (0.0-0.5); Eosinophils % (Auto) 2 % (0-10); Hematocrit 46.7 % (41.0-53.0); Hemoglobin 15.9 g/dL (13.5-16.0); Immature Granulocytes Auto 0.04 Thou/mm3 (0.00-0.00); Lymphocytes # (Auto) 1.9 Thou/mm3 (1.0-4.8); Lymphocytes % (Auto) 36 % (10-50); Mean Corpuscular HGB Conc 34.0 g/dl (31.0-37.0); Mean Corpuscular Hemoglobin 30.3 pg (25.0-35.0); Mean Corpuscular Volume 89 fL (80-100); Monocytes # (Auto) 0.6 Thou/mm3 (0.0-0.8); Monocytes % (Auto) 11 % (0-12); Neutrophils # (Auto) 2.6 Thou/mm3 (1.8-7.7); Neutrophils % (Auto) 50 % (37-80); Nucleated Red Blood Cell # 0.00 Thou/mm3 (0.00-0.00); Nucleated Red Blood Cell % 0 /100 WBC (0); RDW Standard Deviation 43.1 fL (35.1-43.9); Red Blood Count 5.24 Miln/mm3 (4.50-5.90); White Blood Count 5.2 Thou/mm3 (3.8-10.6)
[2025-05-19 06:44] LABS: INR 1.1 (0.9-1.3); Partial Thromboplastin Time 36.3 Seconds (22.0-36.0); Prothrombin Time 11.9 Seconds (9.0-12.2)
[2025-05-19 07:01] LABS: Alanine Aminotransferase 56 U/L (10-49); Albumin, Serum 4.1 gm/dL (3.5-5.0); Albumin/Globulin Ratio 1.7 (1.2-2.2); Alkaline Phosphatase 128 U/L (46-116); Anion Gap 13 (7-16); Aspartate Amino Transferase 59 U/L (0-34); BUN/Creatinine Ratio 13 Ratio (12-20); Bilirubin,Total 1.0 mg/dL (0.3-1.2); Blood Urea Nitrogen 8 mg/dL (9-23); Calcium 9.6 mg/dL (8.3-10.6); Calcium (Corrected) 9.6 mg/dL (8.5-10.1); Carbon Dioxide 24.5 mMol/L (20.0-31.0); Chloride 103 mMol/L (98-107); Creatinine (Component) 0.6 mg/dL (0.6-1.3); Estimated Creatinine Clearance 145.1 mL/min (>60); Globulin 2.4 gm/dL (2.3-3.5); Glucose 107 mg/dL (74-106); Magnesium 1.9 mg/dL (1.6-2.6); Osmolality,Calculated 277 (275-295); Potassium 4.8 mMol/L (3.4-5.1); Sodium 140 mMol/L (136-145); Total Protein 6.5 gm/dL (5.7-8.2); eGFR > 60 See Note
--- NOTE | 2025-05-19 07:57 | PD.CARDCATH ---
Cardiac Cath Procedure Procedure Narrative Date of the procedure 05/19/2025 Title of the procedure 1.left heart catheterization 2.left coronary angiogram 3.right coronary angiogram 4.left ventriculogram 5.conscious sedation 6.radiographic interpretation supervision 7.ultrasound guidance for right femoral access Indication for the procedure This is a 54-year-old gentleman with past medical history of mechanical aortic and mitral valve, polio as a child Complains of atypical chest pain Cardiolite stress test was abnormal Cardiac catheter and cholangiogram recommended Procedure This was done in the cardiac lab under current electrocardiographic monitoring Intermittent blood pressure monitoring right femoral access obtained using modified Seldinger technique and ultrasound guidance 5 Vietnamese sheath was placed JL4 catheter used for selective in the left coronary artery JR4 catheter used to select the right coronary artery Hemodynamics LV gram not done in view of patient's mechanical aortic and mitral valves Coronary anatomy 1.left main coronary artery appears normal 2.left anterior descending artery has minor luminal regularities close to the apex 3.diagonal appears to have luminal irregularities 4.circumflex appears normal 5.obtuse marginal appears normal 6.right coronary is a dominant vessel no significant lesion noted 7.PDA has luminal regularities in the midsegment Conclusion No significant coronary lesion continue medical management
--- NOTE | 2025-05-19 07:59 | PD.IMPROG ---
Documentation for date of: 05/19/25 Subjective Subjective Interval history: Patient's coronary angiogram does not show any significant coronary artery disease Restart heparin Maintain PTT therapeutic range till INR is above 3 Coumadin 10 mg to be started today and adjust appropriately Exam Vital Signs Temp Pulse Resp BP Pulse Ox O2 Del Method 97.2 F 58 L 14 123/77 96 Room Air 05/19/25 04:00 05/19/25 06:52 05/19/25 06:52 05/19/25 06:52 05/19/25 06:52 05/19/25 06:52 Routine HEENT Exam Head: Present normocephalic and atraumatic Eye: Present EOMI and PERRL ENT: Present mucous membranes moist Routine Neck Exam Neck: Present supple and trachea midline Routine Respiratory Exam Respiratory: Present chest non-tender, lungs clear, normal breath sounds and no resp distress Routine Cardiovascular Exam Cardiovascular: Present RRR Routine Abdominal Exam Abdominal: Present soft and normoactive bowel sounds Routine Extremities Exam Extremities: Present full ROM Routine Skin Exam Skin: Present intact, dry and warm Routine Neurological Exam Neurological: Present alert, oriented X3 and CN II-XII intact Routine Psychiatric Exam Psychiatric: Present normal affect and normal thought process Objective Labs 05/19/25 06:13 05/19/25 06:13 Labs: Laboratory Results - last 24 hr 05/18/25 05/19/25 15:09 06:13 WBC 5.2 RBC 5.24 Hgb 15.9 Hct 46.7 MCV 89 MCH 30.3 MCHC 34.0 RDW Std Deviation 43.1 Plt Count 99 L D Neut % (Auto) 50 Lymph % (Auto) 36 [place] % (Auto) 11 Eos % (Auto) 2 Baso % (Auto) 1 Neut # (Auto) 2.6 Lymph # (Auto) 1.9 [place] # (Auto) 0.6 Eos # (Auto) 0.1 Baso # (Auto) 0.1 Immature Gran # (Auto) 0.04 H Absolute Nucleated RBC 0.00 Immature Gran % 1 H Nucleated RBC % 0 PT 11.9 INR 1.1 APTT 61.6 H D 36.3 H D Sodium 140 Potassium 4.8 Chloride 103 Carbon Dioxide 24.5 Anion Gap 13 BUN 8 L Creatinine 0.6 Estim Creat Clear Calc 145.1 eGFR > 60 BUN/Creatinine Ratio 13 Glucose 107 H Calculated Osmolality 277 Calcium 9.6 Corrected Calcium 9.6 Magnesium 1.9 Total Bilirubin 1.0 AST 59 H ALT 56 H Alkaline Phosphatase 128 H Total Protein 6.5 Albumin 4.1 Globulin 2.4 Albumin/Globulin Ratio 1.7 Assessment & Plan A&P Narrative Continue heparin drip Maintain therapeutic PTT Start Coumadin 10 mg p.o. today When the INR is above 3 ;May discontinue heparin Adjust Coumadin dosing to maintain INR above 3 Time Spent With Patient Time: Total time spent is greater than 50% in coordination of care (as documented) at patient's floor/unit and/or counseling patient:
[2025-05-19] MEDS: WARFARIN 5 MG TABLET 10 MG PO (08:36)
--- NOTE | 2025-05-19 10:41 | PC.NURSE ---
Confirmed with Kellen in pharmacy, heparin drip to restart per md order. Ordered stat PTT and will administer heparin drip upon results.
[2025-05-19 11:04] LABS: Partial Thromboplastin Time 26.4 Seconds (22.0-36.0)
[2025-05-19 11:12] LABS: Platelet Count 99 Thou/mm3 (140-440)
--- NOTE | 2025-05-19 12:22 | PC.NURSE ---
Spoke with Kellen in pharmacy regarding start dose for heparin drip based on PTT of 26.4. Will give 4000 bolus and start rate at 12 units/kg/hr as recommended by pharmacy
[2025-05-19] MEDS: Magnesium Sulfate 2 GM Ivpb 2 GM/50 ML BAG IV (12:39)
[2025-05-19] MEDS: VALPROIC ACID SYRUP 250 MG/5 ML UDC 500 MG PO ×2 (12:40→20:27)
[2025-05-19] MEDS: SERTRALINE HCL 25 MG TABLET 50 MG PO (12:40)
[2025-05-19] MEDS: Heparin/D5w 25K 250 ML Ivpb 25,000 UNIT/250 ML BAG 9.798 UNIT IV (12:41)
[2025-05-19] MEDS: HEPARIN SOD INJ 5000 UNIT/ML VIAL 4000 UNIT IV (12:49)
--- NOTE | 2025-05-19 13:55 | ESPR_ITS ---
<Statement entered by Bessei Cottrell MD - 05/20/25 15:11> I attest that I was physically present for the evaluation, physical examination, lab and imaging review of the patient with the residents. I discussed the case with the residents and agree with the findings and plans of care as documented below. Patient underwent cardiac catheterization today with cardiology for unstable angina and abnormal outpatient stress test. Was not found to have any significant coronary artery disease. At bedside, states that he is feeling well and denies any new complaints. His chest pain has resolved and denies shortness of breath, palpitations. Patient's warfarin was discontinued for cardiac catheterization and was continued on heparin drip. We will start bridging to warfarin with heparin on board. Therapeutic INR goal of 2.5-3.5. Pharmacy aware and will dose the warfarin. Bessie Cottrell MD <Statement entered by García Ch MD - 05/20/25 13:07> Patient was seen and examined at bedside. I agree on the assessment and plan on this note as documented by resident Aide Knapp DO PGY1. 54-year-old male with past medical history as below admitted for unstable angina, had abnormal stress test outpatient. Underwent cardiac cath today as no evidence of significant coronary artery disease, bridging started to warfarin. There was concern of thrombocytopenia earlier this morning however repeat platelet count is within normal limits however we will still order peripheral blood smear. Therapeutic INR within range 2.5-3.5, pharmacy to dose warfarin. Will continue heparin drip. Case discussed with attending Dr. Bessie Ch MD PGY-2 Documentation for date of: 05/19/25 Subjective Subjective Interval history: No acute overnight events. Patient seen and examined at bedside with family. Patient reports feeling well today, no episodes of chest pain. Patient underwent and was told he had no stenoses. Denies shortness of breath, palpitations, abdominal pain or urinary symptoms. Patient reports last bowel movement was yesterday, regular no diarrhea or constipation. Cardiac cath done today, no coronary occlusions or stenoses. Per cardiology, warfarin 10 mg x 1 to start heparin to warfarin bridge. Ordered for pharmacy to dose warfarin, goal INR>3. Platelets today 99 from 167, low concern for HIT due to lack of sharp decreased within 1 day versus gradual decline of 6 days. Magnesium 1.9, repleted with 2 g. Cardiac diet started. F/u PM CBC to follow platelets Exam Vital Signs Temp Pulse Resp BP Pulse Ox O2 Del Method O2 Flow Rate 97.0 F 64 16 123/74 94 L Room Air 2 05/19/25 10:15 05/19/25 10:15 05/19/25 10:15 05/19/25 10:15 05/19/25 10:15 05/19/25 10:15 05/19/25 08:30 Narrative Exam GENERAL: AOx3, no acute distress HEENT: NC/AT, mucous membranes moist, bilateral sclera anicteric, +cloudy L pupil CARDIOVASCULAR: regular rate and rhythm, S1/S2 present, no murmurs appreciated PULMONARY: clear to auscultation bilaterally, no rales/rhonchi/wheezes ABDOMINAL: soft, non-tender, non-distended, no rebound/guarding, bowel sounds present EXTREMITIES: no peripheral edema, deformed and contracted fingers bilateral hands and feet MSK: BLE 5/5 strength, BUE 5/5 strength SKIN: warm and dry, intact, no rashes NEURO: CN II-XII grossly intact, no focal deficits, alert, following commands Objective Labs 05/19/25 06:13 05/19/25 06:13 Labs: Laboratory Results - last 24 hr 05/18/25 05/19/25 05/19/25 15:09 06:13 10:21 WBC 5.2 RBC 5.24 Hgb 15.9 Hct 46.7 MCV 89 MCH 30.3 MCHC 34.0 RDW Std Deviation 43.1 Plt Count 99 L D Neut % (Auto) 50 Lymph % (Auto) 36 [place] % (Auto) 11 Eos % (Auto) 2 Baso % (Auto) 1 Neut # (Auto) 2.6 Lymph # (Auto) 1.9 [place] # (Auto) 0.6 Eos # (Auto) 0.1 Baso # (Auto) 0.1 Immature Gran # (Auto) 0.04 H Absolute Nucleated RBC 0.00 Immature Gran % 1 H Nucleated RBC % 0 PT 11.9 INR 1.1 APTT 61.6 H D 36.3 H D 26.4 Sodium 140 Potassium 4.8 Chloride 103 Carbon Dioxide 24.5 Anion Gap 13 BUN 8 L Creatinine 0.6 Estim Creat Clear Calc 145.1 eGFR > 60 BUN/Creatinine Ratio 13 Glucose 107 H Calculated Osmolality 277 Calcium 9.6 Corrected Calcium 9.6 Magnesium 1.9 Total Bilirubin 1.0 AST 59 H ALT 56 H Alkaline Phosphatase 128 H Total Protein 6.5 Albumin 4.1 Globulin 2.4 Albumin/Globulin Ratio 1.7 Quality Measures Quality Measures VTE prophylaxis Assessment & Plan Assessment Current Active Medications: Generic Name Dose Route Start Last Admin Trade Name Freq PRN Reason Stop Dose Admin Acetaminophen 650 mg 05/14/25 20:11 Acetaminophen 325 Mg Tablet PO 06/13/25 20:10 Q6H PRN PAIN SCALE 1-3 (mild Atorvastatin Calcium 40 mg 05/14/25 21:00 05/18/25 20:13 Atorvastatin Calcium 20 Mg Tablet PO 06/13/25 20:59 40 mg HS GABE Administration Heparin Sodium/Dextrose 25,000 unit in 250 mls @ 9.798 mls/hr 05/14/25 19:30 05/19/25 12:41 Heparin In D5w Ivpb IV 05/28/25 19:29 12 units/kg/hr .Q24H GABE 9.798 mls/hr Administration Protocol 12 UNITS/KG/HR Ondansetron HCl 4 mg 05/14/25 20:11 Ondansetron Inj 2 Mg/Ml Inj 2 Ml IVP 06/13/25 20:10 Q6H PRN NAUSEA OR VOMITING Protocol Sennosides 1 tab 05/14/25 22:53 Senna Tablet PO 06/13/25 22:52 QDAY PRN CONSTIPATION Protocol Sertraline HCl 50 mg 05/17/25 09:00 05/19/25 12:40 Sertraline Hcl 25 Mg Tablet PO 06/16/25 08:59 50 mg QDAY GABE Administration Tramadol HCl 50 mg 05/14/25 20:11 Tramadol Hcl 50 Mg Tablet PO 05/19/25 20:10 Q6HR PRN PAIN SCALE 4-6 (Moderate Valproic Acid 500 mg 05/14/25 21:15 05/19/25 12:40 Valproic Acid Syrup 250 Mg/5 Ml Udc PO 06/13/25 21:14 500 mg BID GABE Administration Plan Mr. 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 Admitted for ACS workup and management. #Unstable angina #ACS ruled out #Valvular heart disease, s/p mechanical AV and MV replacement #Prior thromboembolism Patient endorses pressure-like pain that is intermittent at rest. Recently patient completed a stress test which was abnormal value. Was scheduled for outpatient cardiac cath however due to significant chest pain he presented to the ED. Admission trops wnl, EKG unrmarkable, cholesterol wnl. Likely coronary vasospasms Chest x-ray showed median sternotomy wires of frame, minor prominence left ventricle, bilateral probable ventriculoperitoneal shunt tubes. No pneumonia or pulmonary edema. Per cardiology hold warfarin for now and start heparin for therapeutic PTT (Therapeutic PTT is important as pt had prior thromboembolism when anticoagulation is not therapeutic, recommend echo, no plavix ECHO (05/14/25)- Estimated EF at 55%. The RV size is mildy increased with normal systolic function. Moderately increased LA volume 43.7 mL/m?. Cardiac cath showed no significant coronary lesion Plan - Atorvastatin 40 mg qHS - Daily INR - Continue monitoring for acute changes in chest pain presentation - Maintain potassium >4.0 and magnesium >2.0 - Cardiology consulted, recs appreciated: cardiac cath clear, warfarin 10 mg x1 to start bridge until INR>3 - Ordered warfarin for pharmacy to dose #Acute thrombocytopenia 05/19, platelets 99. On admission platelets 202. Has been on heparin since 05/14. Per pharmacy, unlikely HIT as 50% platelet decrease was over 6 days not 1 day. Ddx: low suspicion for acute bleed as Hgb stable, possible gradual loss of platelets from serial blood draws Plan: - F/u PM CBC, peripheral smear - CTM platelets #Seizures disorders 10/25 #TBI s/p [employer]ICE CHANCELLOR shunt Patient had seizure disorder post s/p traumatic brain injury in 2013 Plan - Continue home valproic acid 500 mg BID for seizure disorder - Continue home sertraline 50 mg QD - Continue to monitor for seizures #Hypertension #Hyperlipemia Patient has a history of hypertension being managed on amlodipine 2.5 mg p.o. daily Plan - Continue to monitor blood pressure - Hold amlodipine 2.5 mg in setting of soft BP - Atorvastatin as above #Wheelchair-bound status #Deformities of bilateral fingers, hands, and feet 2/ childhood polio Hospital Management: Disposition: undergoing work-up and management of unstable angina concerning for ACS Diet: Cardiac GI Prophylaxis: N/A Bowel Prophylaxis: Senna DVT Prophylaxis: Heparin CODE STATUS: Full Code Plan of care discussed with attending Dr. Patton, and PGY-2 Dr. Ch. Aide Knapp, DO PGY-1 Internal Medicine
--- NOTE | 2025-05-19 14:35 | PC.SS ---
Rounding: [place] today, DC home 1-2 days
[2025-05-19 15:43] LABS: Basophils # (Auto) 0.0 Thou/mm3 (0.0-0.2); Basophils % (Auto) 1 % (0-2.5); Eosinophils # (Auto) 0.1 Thou/mm3 (0.0-0.5); Eosinophils % (Auto) 1 % (0-10); Hematocrit 43.5 % (41.0-53.0); Hemoglobin 15.1 g/dL (13.5-16.0); Immature Granulocytes Auto 0.05 Thou/mm3 (0.00-0.00); Lymphocytes # (Auto) 1.5 Thou/mm3 (1.0-4.8); Lymphocytes % (Auto) 22 % (10-50); Mean Corpuscular HGB Conc 34.7 g/dl (31.0-37.0); Mean Corpuscular Hemoglobin 30.4 pg (25.0-35.0); Mean Corpuscular Volume 88 fL (80-100); Monocytes # (Auto) 0.6 Thou/mm3 (0.0-0.8); Monocytes % (Auto) 9 % (0-12); Neutrophils # (Auto) 4.6 Thou/mm3 (1.8-7.7); Neutrophils % (Auto) 67 % (37-80); Nucleated Red Blood Cell # 0.00 Thou/mm3 (0.00-0.00); Nucleated Red Blood Cell % 0 /100 WBC (0); Platelet Count 175 Thou/mm3 (140-440); RDW Standard Deviation 41.9 fL (35.1-43.9); Red Blood Count 4.97 Miln/mm3 (4.50-5.90); White Blood Count 6.9 Thou/mm3 (3.8-10.6)
[2025-05-19 17:57] LABS: Path Review Blood Smear Sent to Pathologist
[2025-05-19 19:57] LABS: Partial Thromboplastin Time 86.2 Seconds (22.0-36.0)
[2025-05-19] MEDS: ATORVASTATIN CALCIUM 20 MG TABLET 40 MG PO (20:27)
[2025-05-20] VITALS (7 sets, daily range): BP systolic 104–119; BP diastolic 57–71; PULSE 64–79; RESP 16–19; TEMP 36.2–36.6; O2SAT 92–99; BMI 32.1
[2025-05-20 02:40] LABS: Basophils # (Auto) 0.0 Thou/mm3 (0.0-0.2); Basophils % (Auto) 1 % (0-2.5); Eosinophils # (Auto) 0.1 Thou/mm3 (0.0-0.5); Eosinophils % (Auto) 1 % (0-10); Hematocrit 44.1 % (41.0-53.0); Hemoglobin 15.1 g/dL (13.5-16.0); Immature Granulocytes Auto 0.03 Thou/mm3 (0.00-0.00); Lymphocytes # (Auto) 1.7 Thou/mm3 (1.0-4.8); Lymphocytes % (Auto) 24 % (10-50); Mean Corpuscular HGB Conc 34.2 g/dl (31.0-37.0); Mean Corpuscular Hemoglobin 30.1 pg (25.0-35.0); Mean Corpuscular Volume 88 fL (80-100); Monocytes # (Auto) 0.7 Thou/mm3 (0.0-0.8); Monocytes % (Auto) 10 % (0-12); Neutrophils # (Auto) 4.4 Thou/mm3 (1.8-7.7); Neutrophils % (Auto) 64 % (37-80); Nucleated Red Blood Cell # 0.00 Thou/mm3 (0.00-0.00); Nucleated Red Blood Cell % 0 /100 WBC (0); Platelet Count 154 Thou/mm3 (140-440); RDW Standard Deviation 42.3 fL (35.1-43.9); Red Blood Count 5.01 Miln/mm3 (4.50-5.90); White Blood Count 7.0 Thou/mm3 (3.8-10.6)
[2025-05-20 03:00] LABS: Alanine Aminotransferase 75 U/L (10-49); Albumin, Serum 3.9 gm/dL (3.5-5.0); Albumin/Globulin Ratio 1.8 (1.2-2.2); Alkaline Phosphatase 143 U/L (46-116); Anion Gap 8 (7-16); Aspartate Amino Transferase 64 U/L (0-34); BUN/Creatinine Ratio 22 Ratio (12-20); Bilirubin,Total 0.6 mg/dL (0.3-1.2); Blood Urea Nitrogen 11 mg/dL (9-23); Calcium 9.2 mg/dL (8.3-10.6); Calcium (Corrected) 9.3 mg/dL (8.5-10.1); Carbon Dioxide 28.6 mMol/L (20.0-31.0); Chloride 103 mMol/L (98-107); Creatinine (Component) 0.5 mg/dL (0.6-1.3); Estimated Creatinine Clearance 174.1 mL/min (>60); Globulin 2.2 gm/dL (2.3-3.5); Glucose 138 mg/dL (74-106); Magnesium 1.8 mg/dL (1.6-2.6); Osmolality,Calculated 280 (275-295); Potassium 4.0 mMol/L (3.4-5.1); Sodium 140 mMol/L (136-145); Total Protein 6.1 gm/dL (5.7-8.2); eGFR > 60 See Note
[2025-05-20 03:10] LABS: INR 1.2 (0.9-1.3); Partial Thromboplastin Time 65.2 Seconds (22.0-36.0); Prothrombin Time 12.7 Seconds (9.0-12.2)
--- NOTE | 2025-05-20 08:01 | ESPR_ITS ---
Documentation for date of: 05/20/25 Subjective Subjective Interval history: Patient did undergo coronary angiogram No significant coronary lesion INR is still subtherapeutic at 1.2 Recommend giving Coumadin 10 mg today Repeat INR tomorrow In the interim continue heparin drip as patient has 2 mechanical valves in the aortic and mitral position Exam Vital Signs Temp Pulse Resp BP Pulse Ox O2 Del Method O2 Flow Rate 97.5 F 71 19 104/58 L 98 Room Air 2 05/20/25 04:00 05/20/25 04:00 05/20/25 04:00 05/20/25 04:00 05/20/25 04:00 05/20/25 04:00 05/19/25 08:30 Routine HEENT Exam Head: Present normocephalic and atraumatic Eye: Present EOMI and PERRL ENT: Present mucous membranes moist Routine Neck Exam Neck: Present supple and trachea midline Routine Respiratory Exam Respiratory: Present chest non-tender, lungs clear, normal breath sounds and no resp distress Routine Cardiovascular Exam Cardiovascular: Present RRR Routine Abdominal Exam Abdominal: Present soft and normoactive bowel sounds Routine Extremities Exam Extremities: Present full ROM Routine Skin Exam Skin: Present intact, dry and warm Routine Neurological Exam Neurological: Present alert, oriented X3 and CN II-XII intact Routine Psychiatric Exam Psychiatric: Present normal affect and normal thought process Objective Labs 05/20/25 02:21 05/20/25 02:21 Labs: Laboratory Results - last 24 hr 05/19/25 05/19/25 05/19/25 06:13 10:21 15:09 WBC 6.9 RBC 4.97 Hgb 15.1 Hct 43.5 MCV 88 MCH 30.4 MCHC 34.7 RDW Std Deviation 41.9 Plt Count 99 L D 175 D Neut % (Auto) 67 Lymph % (Auto) 22 [place] % (Auto) 9 Eos % (Auto) 1 Baso % (Auto) 1 Neut # (Auto) 4.6 Lymph # (Auto) 1.5 [place] # (Auto) 0.6 Eos # (Auto) 0.1 Baso # (Auto) 0.0 Immature Gran # (Auto) 0.05 H Absolute Nucleated RBC 0.00 Immature Gran % 1 H Nucleated RBC % 0 Smear Path Review Sent to Pathologist PT INR APTT 26.4 Sodium Potassium Chloride Carbon Dioxide Anion Gap BUN Creatinine Estim Creat Clear Calc eGFR BUN/Creatinine Ratio Glucose Calculated Osmolality Calcium Corrected Calcium Magnesium Total Bilirubin AST ALT Alkaline Phosphatase Total Protein Albumin Globulin Albumin/Globulin Ratio 05/19/25 05/20/25 19:14 02:21 WBC 7.0 RBC 5.01 Hgb 15.1 Hct 44.1 MCV 88 MCH 30.1 MCHC 34.2 RDW Std Deviation 42.3 Plt Count 154 Neut % (Auto) 64 Lymph % (Auto) 24 [place] % (Auto) 10 Eos % (Auto) 1 Baso % (Auto) 1 Neut # (Auto) 4.4 Lymph # (Auto) 1.7 [place] # (Auto) 0.7 Eos # (Auto) 0.1 Baso # (Auto) 0.0 Immature Gran # (Auto) 0.03 H Absolute Nucleated RBC 0.00 Immature Gran % 0 Nucleated RBC % 0 Smear Path Review PT 12.7 H INR 1.2 APTT 86.2 H D 65.2 H D Sodium 140 Potassium 4.0 D Chloride 103 Carbon Dioxide 28.6 Anion Gap 8 BUN 11 Creatinine 0.5 L Estim Creat Clear Calc 174.1 eGFR > 60 BUN/Creatinine Ratio 22 H Glucose 138 H Calculated Osmolality 280 Calcium 9.2 Corrected Calcium 9.3 Magnesium 1.8 Total Bilirubin 0.6 AST 64 H ALT 75 H Alkaline Phosphatase 143 H Total Protein 6.1 Albumin 3.9 Globulin 2.2 L Albumin/Globulin Ratio 1.8 Assessment & Plan A&P Narrative Continue heparin drip Maintain therapeutic PTT second dose of Coumadin 10 mg p.o. today When the INR is above 3 ;May discontinue heparin Repeat INR tomorrow Time Spent With Patient Time: Total time spent is greater than 50% in coordination of care (as documented) at patient's floor/unit and/or counseling patient:
[2025-05-20] MEDS: SERTRALINE HCL 25 MG TABLET 50 MG PO (08:16)
[2025-05-20] MEDS: VALPROIC ACID SYRUP 250 MG/5 ML UDC 500 MG PO ×2 (08:16→20:55)
[2025-05-20] MEDS: Magnesium Sulfate 4 GM Ivpb 4 GM/50 ML BAG IV (08:17)
[2025-05-20 09:28] LABS: Partial Thromboplastin Time 49.0 Seconds (22.0-36.0)
[2025-05-20] MEDS: HEPARIN SOD INJ 5000 UNIT/ML VIAL 2000 UNIT IVP (10:31)
--- NOTE | 2025-05-20 10:59 | XR_ITS ---
Examination: Abdomen sonogram, Limited Date and time of exam: May 20, 2025, 1232 hours INDICATIONS: Elevated liver enzymes on laboratory examination today Technique: Real-time chambers scale transabdominal sonographic images of the upper abdomen obtained. Findings: Normal gallbladder. Normal common bile duct 0.3 cm Pancreatic head 3.8 cm Liver 17.3 cm fatty infiltration. Normal hepatopedal portal venous flow Patent IVC IMPRESSION: Normal gallbladder Prominent pancreatic head, consider CT scan abdomen pelvis post intravenous contrast follow-up
[2025-05-20] MEDS: WARFARIN 5 MG TABLET PO (12:15)
--- NOTE | 2025-05-20 13:30 | ESPR_ITS ---
<Statement entered by Bessie Cottrell MD - 05/20/25 21:56> I attest that I was physically present for the evaluation, physical examination, lab and imaging review of the patient with the residents. I discussed the case with the residents and agree with the findings and plans of care as documented above. At bedside today, patient states he is feeling well and denies new complaints. INR this morning is 1.2. We will continue to bridge to warfarin with therapeutic goal of 2.5 to 3.5. Bessie Cottrell MD <Statement entered by García Ch MD - 05/20/25 15:32> Patient was seen and examined at bedside. I agree on the assessment and plan on this note as documented by resident Elizabeth Barrett MD PGY1. 54-year-old male with past medical history as below admitted for cardiac chest pain episode, had abnormal nuclear stress test outpatient. Underwent cardiac cath was found to be negative for coronary lesion, cardiology recommended bridging back to warfarin as patient had mechanical valves, goal therapeutic INR 2.5?3.5. Will continue warfarin, pharmacy to dose, continue heparin drip. Case discussed with attending Dr. Bessie Ch MD PGY-2 Documentation for date of: 05/20/25 Subjective Subjective Interval history: No acute event overnight. Patient was seen and examined at beside. Saturating well on room air. Vitals within normal limit. Patient report dull intermittent pain around right inguinal area. He states that the pain started after cardiac angiogram. There are no erythema or scars around the inguinal area. Will continue to monitor for pain. Otherwise no chest pain , shortness of breath, weakness or urinary symptoms. Last bowel movement was 2 days ago. Pt denies bowel regimen, and prefers to attempt bowel movement naturally. AM labs reviewed. Significant for AST 64, ALT 143, Alk phos 143. Renal ultrasound ordered due to high AST/ALT Repleted Mg Warfarin bridge with therapeutic INR range within 2.5-3. Todays INR 1.2. Will continue to monitor Downgraded to med-tele. Exam Vital Signs Temp Pulse Resp BP Pulse Ox O2 Del Method O2 Flow Rate 97.2 F 64 18 118/71 94 L Room Air 2 05/20/25 08:00 05/20/25 12:00 05/20/25 08:00 05/20/25 08:00 05/20/25 08:00 05/20/25 08:00 05/19/25 08:30 Narrative Exam GENERAL: AOx3, no acute distress HEENT: NC/AT, mucous membranes moist, bilateral sclera anicteric, +cloudy L pupil CARDIOVASCULAR: regular rate and rhythm, S1/S2 present, no murmurs appreciated PULMONARY: clear to auscultation bilaterally, no rales/rhonchi/wheezes ABDOMINAL: soft, non-tender, midly-distended, no rebound/guarding, bowel sounds present EXTREMITIES: no peripheral edema, deformed and contracted fingers bilateral hands and feet MSK: BLE 5/5 strength, BUE 5/5 strength SKIN: warm and dry, intact, no rashes NEURO: CN II-XII grossly intact, no focal deficits, alert, following commands Objective Labs 05/20/25 02:21 05/20/25 02:21 Labs: Laboratory Results - last 24 hr 05/19/25 05/19/25 05/20/25 15:09 19:14 02:21 WBC 6.9 7.0 RBC 4.97 5.01 Hgb 15.1 15.1 Hct 43.5 44.1 MCV 88 88 MCH 30.4 30.1 MCHC 34.7 34.2 RDW Std Deviation 41.9 42.3 Plt Count 175 D 154 Neut % (Auto) 67 64 Lymph % (Auto) 22 24 [place] % (Auto) 9 10 Eos % (Auto) 1 1 Baso % (Auto) 1 1 Neut # (Auto) 4.6 4.4 Lymph # (Auto) 1.5 1.7 [place] # (Auto) 0.6 0.7 Eos # (Auto) 0.1 0.1 Baso # (Auto) 0.0 0.0 Immature Gran # (Auto) 0.05 H 0.03 H Absolute Nucleated RBC 0.00 0.00 Immature Gran % 1 H 0 Nucleated RBC % 0 0 Smear Path Review Sent to Pathologist PT 12.7 H INR 1.2 APTT 86.2 H D 65.2 H D Sodium 140 Potassium 4.0 D Chloride 103 Carbon Dioxide 28.6 Anion Gap 8 BUN 11 Creatinine 0.5 L Estim Creat Clear Calc 174.1 eGFR > 60 BUN/Creatinine Ratio 22 H Glucose 138 H Calculated Osmolality 280 Calcium 9.2 Corrected Calcium 9.3 Magnesium 1.8 Total Bilirubin 0.6 AST 64 H ALT 75 H Alkaline Phosphatase 143 H Total Protein 6.1 Albumin 3.9 Globulin 2.2 L Albumin/Globulin Ratio 1.8 05/20/25 08:10 WBC RBC Hgb Hct MCV MCH MCHC RDW Std Deviation Plt Count Neut % (Auto) Lymph % (Auto) [place] % (Auto) Eos % (Auto) Baso % (Auto) Neut # (Auto) Lymph # (Auto) [place] # (Auto) Eos # (Auto) Baso # (Auto) Immature Gran # (Auto) Absolute Nucleated RBC Immature Gran % Nucleated RBC % Smear Path Review PT INR APTT 49.0 H D Sodium Potassium Chloride Carbon Dioxide Anion Gap BUN Creatinine Estim Creat Clear Calc eGFR BUN/Creatinine Ratio Glucose Calculated Osmolality Calcium Corrected Calcium Magnesium Total Bilirubin AST ALT Alkaline Phosphatase Total Protein Albumin Globulin Albumin/Globulin Ratio Quality Measures Quality Measures VTE prophylaxis Assessment & Plan Assessment Current Active Medications: Generic Name Dose Route Start Last Admin Trade Name Freq PRN Reason Stop Dose Admin Acetaminophen 650 mg 05/14/25 20:11 Acetaminophen 325 Mg Tablet PO 06/13/25 20:10 Q6H PRN PAIN SCALE 1-3 (mild Atorvastatin Calcium 40 mg 05/14/25 21:00 05/19/25 20:27 Atorvastatin Calcium 20 Mg Tablet PO 06/13/25 20:59 40 mg HS GABE Administration Heparin Sodium/Dextrose 25,000 unit in 250 mls @ 9.798 mls/hr 05/14/25 19:30 05/20/25 10:32 Heparin In D5w Ivpb IV 05/28/25 19:29 12 units/kg/hr .Q24H GABE 9.798 mls/hr Titration Protocol 12 UNITS/KG/HR Ondansetron HCl 4 mg 05/14/25 20:11 Ondansetron Inj 2 Mg/Ml Inj 2 Ml IVP 06/13/25 20:10 Q6H PRN NAUSEA OR VOMITING Protocol Pharmacy Consult 1 each 05/20/25 09:00 Pharmacy To Dose Warfarin PO 06/19/25 08:59 QDAY GABE Sennosides 1 tab 05/14/25 22:53 Senna Tablet PO 06/13/25 22:52 QDAY PRN CONSTIPATION Protocol Sertraline HCl 50 mg 05/17/25 09:00 05/20/25 08:16 Sertraline Hcl 25 Mg Tablet PO 06/16/25 08:59 50 mg QDAY GABE Administration Tramadol HCl 50 mg 05/14/25 20:11 Tramadol Hcl 50 Mg Tablet PO 05/24/25 20:10 Q6HR PRN PAIN SCALE 4-6 (Moderate Valproic Acid 500 mg 05/14/25 21:15 05/20/25 08:16 Valproic Acid Syrup 250 Mg/5 Ml Udc PO 06/13/25 21:14 500 mg BID GABE Administration Plan Mr. 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 Admitted for ACS workup and management. #Chest pain- resolved #ACS ruled out #Valvular heart disease, s/p mechanical AV and MV replacement #Prior thromboembolism Patient endorses pressure-like pain that is intermittent at rest. Recently patient completed a stress test which was abnormal value. Was scheduled for outpatient cardiac cath however due to significant chest pain he presented to the ED. Admission trops wnl, EKG unrmarkable, cholesterol wnl. Likely coronary vasospasms Chest x-ray showed median sternotomy wires of frame, minor prominence left ventricle, bilateral probable ventriculoperitoneal shunt tubes. No pneumonia or pulmonary edema. Per cardiology hold warfarin for now and start heparin for therapeutic PTT (Therapeutic PTT is important as pt had prior thromboembolism when anticoagulation is not therapeutic, recommend echo, no plavix. Post coromary angiogram resume warfarin bridge with therapy. INR within 2.5-3.5. ECHO (05/14/25)- Estimated EF at 55%. The RV size is mildy increased with normal systolic function. Moderately increased LA volume 43.7 mL/m?. Cardiac cath showed no significant coronary lesion Plan - Atorvastatin 40 mg qHS - Continue daily INR - Continue monitoring for acute changes in chest pain presentation - Maintain potassium >4.0 and magnesium >2.0 - Cardiology consulted, recs appreciated: cardiac cath clear, warfarin 10 mg x1 to continue bridge until INR>3 - Continue warfarin bridge for pharmacy to dose #Transaminitis Noted an uptrending in ALT/AST level from admission.AST and ALT 75. 8/- Liver US: Liver 17.3 cm fatty filtration, normal gallbladder, normal CBD 0.3cm Plan -Liver ultrasound ordered - Continue to monitor Liver enzymes #Acute thrombocytopenia- resolved 05/19, platelets 99. On admission platelets 202. Has been on heparin since 05/14. Per pharmacy, unlikely HIT as 50% platelet decrease was over 6 days not 1 day. 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 daily Plan - Continue to monitor blood pressure - Hold amlodipine 2.5 mg in setting of soft BP - Atorvastatin as above #Wheelchair-bound status #Deformities of bilateral fingers, hands, and feet 2/2 childhood polio Hospital Management: Disposition: post cardiac cath, warfarin bridge Diet: Cardiac GI Prophylaxis: N/A Bowel Prophylaxis: Senna DVT Prophylaxis: Heparin CODE STATUS: Full Code Plan of care discussed with attending Dr. Patton, and PGY-2 Dr. Ch. Elizabeth Barrett PGY-1 Internal Medicine
--- NOTE | 2025-05-20 15:04 | PC.RT ---
Rounding: Pending I&R stabilization
[2025-05-20] MEDS: Heparin/D5w 25K 250 ML Ivpb 25,000 UNIT/250 ML BAG 9.798 UNIT IV (15:18)
[2025-05-20 18:47] LABS: Partial Thromboplastin Time > 139.0 Seconds (22.0-36.0)
--- NOTE | 2025-05-20 19:30 | PC.NURSE ---
made aware of PTT 139 at 1856, per dr order pause heparin drip
[2025-05-20] MEDS: ATORVASTATIN CALCIUM 20 MG TABLET 40 MG PO (20:55)
[2025-05-21] VITALS (9 sets, daily range): BP systolic 100–114; BP diastolic 60–76; PULSE 63–76; RESP 12–19; TEMP 36.2–36.7; O2SAT 94–98; BMI 32.2
[2025-05-21 02:45] LABS: Partial Thromboplastin Time 80.3 Seconds (22.0-36.0)
[2025-05-21 06:03] LABS: Basophils # (Auto) 0.1 Thou/mm3 (0.0-0.2); Basophils % (Auto) 1 % (0-2.5); Eosinophils # (Auto) 0.1 Thou/mm3 (0.0-0.5); Eosinophils % (Auto) 1 % (0-10); Hematocrit 43.0 % (41.0-53.0); Hemoglobin 14.7 g/dL (13.5-16.0); Immature Granulocytes Auto 0.06 Thou/mm3 (0.00-0.00); Lymphocytes # (Auto) 2.2 Thou/mm3 (1.0-4.8); Lymphocytes % (Auto) 33 % (10-50); Mean Corpuscular HGB Conc 34.2 g/dl (31.0-37.0); Mean Corpuscular Hemoglobin 30.3 pg (25.0-35.0); Mean Corpuscular Volume 89 fL (80-100); Monocytes # (Auto) 0.7 Thou/mm3 (0.0-0.8); Monocytes % (Auto) 10 % (0-12); Neutrophils # (Auto) 3.7 Thou/mm3 (1.8-7.7); Neutrophils % (Auto) 54 % (37-80); Nucleated Red Blood Cell # 0.00 Thou/mm3 (0.00-0.00); Nucleated Red Blood Cell % 0 /100 WBC (0); Platelet Count 140 Thou/mm3 (140-440); RDW Standard Deviation 43.0 fL (35.1-43.9); Red Blood Count 4.85 Miln/mm3 (4.50-5.90); White Blood Count 6.8 Thou/mm3 (3.8-10.6)
[2025-05-21 06:12] LABS: INR 2.2 (0.9-1.3); Prothrombin Time 22.4 Seconds (9.0-12.2)
[2025-05-21 06:37] LABS: Alanine Aminotransferase 58 U/L (10-49); Albumin, Serum 3.7 gm/dL (3.5-5.0); Albumin/Globulin Ratio 1.5 (1.2-2.2); Alkaline Phosphatase 120 U/L (46-116); Anion Gap 10 (7-16); Aspartate Amino Transferase 40 U/L (0-34); BUN/Creatinine Ratio 16 Ratio (12-20); Bilirubin,Total 0.6 mg/dL (0.3-1.2); Blood Urea Nitrogen 8 mg/dL (9-23); Calcium 9.2 mg/dL (8.3-10.6); Calcium (Corrected) 9.4 mg/dL (8.5-10.1); Carbon Dioxide 27.3 mMol/L (20.0-31.0); Chloride 103 mMol/L (98-107); Creatinine (Component) 0.5 mg/dL (0.6-1.3); Estimated Creatinine Clearance 174.2 mL/min (>60); Globulin 2.4 gm/dL (2.3-3.5); Glucose 119 mg/dL (74-106); Magnesium 2.0 mg/dL (1.6-2.6); Osmolality,Calculated 278 (275-295); Potassium 4.4 mMol/L (3.4-5.1); Sodium 140 mMol/L (136-145); Total Protein 6.1 gm/dL (5.7-8.2); eGFR > 60 See Note
[2025-05-21] MEDS: VALPROIC ACID SYRUP 250 MG/5 ML UDC 500 MG PO ×2 (09:02→20:30)
[2025-05-21] MEDS: SERTRALINE HCL 25 MG TABLET 50 MG PO (09:02)
--- NOTE | 2025-05-21 09:13 | ESPR_ITS ---
Documentation for date of: 05/21/25 Subjective Subjective Interval history: INR 2.2 today may give 5 mg of coumadin today continue heparin plan for d/c tomorrow when INR is above 3 Exam Vital Signs Temp Pulse Resp BP Pulse Ox O2 Del Method O2 Flow Rate 97.1 F 66 17 104/74 97 Room Air 2 05/21/25 08:00 05/21/25 08:00 05/21/25 08:00 05/21/25 08:00 05/21/25 08:00 05/21/25 08:00 05/19/25 08:30 Routine HEENT Exam Head: Present normocephalic and atraumatic Eye: Present EOMI and PERRL ENT: Present mucous membranes moist Routine Neck Exam Neck: Present supple and trachea midline Routine Respiratory Exam Respiratory: Present chest non-tender, lungs clear, normal breath sounds and no resp distress Routine Cardiovascular Exam Cardiovascular: Present RRR Routine Abdominal Exam Abdominal: Present soft and normoactive bowel sounds Routine Extremities Exam Extremities: Present full ROM Routine Skin Exam Skin: Present intact, dry and warm Routine Neurological Exam Neurological: Present alert, oriented X3 and CN II-XII intact Routine Psychiatric Exam Psychiatric: Present normal affect and normal thought process Objective Labs 05/21/25 05:10 05/21/25 05:10 Labs: Laboratory Results - last 24 hr 05/20/25 05/20/25 05/21/25 08:10 16:55 02:02 WBC RBC Hgb Hct MCV MCH MCHC RDW Std Deviation Plt Count Neut % (Auto) Lymph % (Auto) [place] % (Auto) Eos % (Auto) Baso % (Auto) Neut # (Auto) Lymph # (Auto) [place] # (Auto) Eos # (Auto) Baso # (Auto) Immature Gran # (Auto) Absolute Nucleated RBC Immature Gran % Nucleated RBC % PT INR APTT 49.0 H D > 139.0 H* D 80.3 H D Sodium Potassium Chloride Carbon Dioxide Anion Gap BUN Creatinine Estim Creat Clear Calc eGFR BUN/Creatinine Ratio Glucose Calculated Osmolality Calcium Corrected Calcium Magnesium Total Bilirubin AST ALT Alkaline Phosphatase Total Protein Albumin Globulin Albumin/Globulin Ratio 05/21/25 05:10 WBC 6.8 RBC 4.85 Hgb 14.7 Hct 43.0 MCV 89 MCH 30.3 MCHC 34.2 RDW Std Deviation 43.0 Plt Count 140 Neut % (Auto) 54 Lymph % (Auto) 33 [place] % (Auto) 10 Eos % (Auto) 1 Baso % (Auto) 1 Neut # (Auto) 3.7 Lymph # (Auto) 2.2 [place] # (Auto) 0.7 Eos # (Auto) 0.1 Baso # (Auto) 0.1 Immature Gran # (Auto) 0.06 H Absolute Nucleated RBC 0.00 Immature Gran % 1 H Nucleated RBC % 0 PT 22.4 H D INR 2.2 H APTT Sodium 140 Potassium 4.4 Chloride 103 Carbon Dioxide 27.3 Anion Gap 10 BUN 8 L Creatinine 0.5 L Estim Creat Clear Calc 174.2 eGFR > 60 BUN/Creatinine Ratio 16 Glucose 119 H Calculated Osmolality 278 Calcium 9.2 Corrected Calcium 9.4 Magnesium 2.0 Total Bilirubin 0.6 AST 40 H ALT 58 H Alkaline Phosphatase 120 H D Total Protein 6.1 Albumin 3.7 Globulin 2.4 Albumin/Globulin Ratio 1.5 Assessment & Plan A&P Narrative Continue heparin drip Maintain therapeutic PTT coumadin 5 mg today plan for D/C tomorrow when INR is above 3 Time Spent With Patient Time: Total time spent is greater than 50% in coordination of care (as documented) at patient's floor/unit and/or counseling patient:
[2025-05-21 10:01] LABS: Partial Thromboplastin Time 59.5 Seconds (22.0-36.0)
--- NOTE | 2025-05-21 10:39 | ESPR_ITS ---
<Statement entered by García Ch MD - 05/22/25 16:31> Patient was seen and examined at bedside. I agree on the assessment and plan on this note as documented by resident Elizabeth Barrett MD PGY1. 54-year-old male with past medical history as below admitted for abnormal stress test and chest pain for ACS rule out underwent cardiac cath which was negative for any significant coronary lesion, patient being bridged from heparin drip to warfarin to obtain INR goal 2.5?3.5, anticipate discharge in the next 24 hours once INR is therapeutic Case discussed with attending Dr. Padmini Lebron MD PGY-2 Documentation for date of: 05/21/25 Subjective Subjective Interval history: No acute events overnight. Patient was seen and examined at bedside. He is feeling well. Denies chest pain, palpitation, abdominal pain and urinary changes. No longer endorses right sided pain in inguinal area. Saturating well on room air. Vitals signs are within normal limit. AM labs reviewed. INR improved to 2.2. Still on heparin drip. Therapeutic INR goal of 2.5-3.5 Plan to discharge tomorrow AM with INR > 2.5 Exam Vital Signs Temp Pulse Resp BP Pulse Ox O2 Del Method O2 Flow Rate 97.1 F 66 17 104/74 97 Room Air 2 05/21/25 08:00 05/21/25 08:00 05/21/25 08:00 05/21/25 08:00 05/21/25 08:00 05/21/25 08:00 05/19/25 08:30 Narrative Exam GENERAL: AOx3, no acute distress HEENT: NC/AT, mucous membranes moist, bilateral sclera anicteric, +cloudy L pupil CARDIOVASCULAR: regular rate and rhythm, S1/S2 present, no murmurs appreciated PULMONARY: clear to auscultation bilaterally, no rales/rhonchi/wheezes ABDOMINAL: soft, non-tender, midly-distended, no rebound/guarding, bowel sounds present EXTREMITIES: no peripheral edema, deformed and contracted fingers bilateral hands and feet MSK: BLE 5/5 strength, BUE 5/5 strength SKIN: warm and dry, intact, no rashes NEURO: CN II-XII grossly intact, no focal deficits, alert, following commands Objective Labs 05/22/25 05:40 05/22/25 05:40 Labs: Laboratory Results - last 24 hr 05/20/25 05/21/25 05/21/25 16:55 02:02 05:10 WBC 6.8 RBC 4.85 Hgb 14.7 Hct 43.0 MCV 89 MCH 30.3 MCHC 34.2 RDW Std Deviation 43.0 Plt Count 140 Neut % (Auto) 54 Lymph % (Auto) 33 [place]verse % (Auto) 10 Eos % (Auto) 1 Baso % (Auto) 1 Neut # (Auto) 3.7 Lymph # (Auto) 2.2 Traverse # (Auto) 0.7 Eos # (Auto) 0.1 Baso # (Auto) 0.1 Immature Gran # (Auto) 0.06 H Absolute Nucleated RBC 0.00 Immature Gran % 1 H Nucleated RBC % 0 PT 22.4 H D INR 2.2 H APTT > 139.0 H* D 80.3 H D Sodium 140 Potassium 4.4 Chloride 103 Carbon Dioxide 27.3 Anion Gap 10 BUN 8 L Creatinine 0.5 L Estim Creat Clear Calc 174.2 eGFR > 60 BUN/Creatinine Ratio 16 Glucose 119 H Calculated Osmolality 278 Calcium 9.2 Corrected Calcium 9.4 Magnesium 2.0 Total Bilirubin 0.6 AST 40 H ALT 58 H Alkaline Phosphatase 120 H D Total Protein 6.1 Albumin 3.7 Globulin 2.4 Albumin/Globulin Ratio 1.5 05/21/25 09:00 WBC RBC Hgb Hct MCV MCH MCHC RDW Std Deviation Plt Count Neut % (Auto) Lymph % (Auto) Traverse % (Auto) Eos % (Auto) Baso % (Auto) Neut # (Auto) Lymph # (Auto) [place]verse # (Auto) Eos # (Auto) Baso # (Auto) Immature Gran # (Auto) Absolute Nucleated RBC Immature Gran % Nucleated RBC % PT INR APTT 59.5 H D Sodium Potassium Chloride Carbon Dioxide Anion Gap BUN Creatinine Estim Creat Clear Calc eGFR BUN/Creatinine Ratio Glucose Calculated Osmolality Calcium Corrected Calcium Magnesium Total Bilirubin AST ALT Alkaline Phosphatase Total Protein Albumin Globulin Albumin/Globulin Ratio Quality Measures Quality Measures VTE prophylaxis Assessment & Plan Assessment Current Active Medications: Generic Name Dose Route Start Last Admin Trade Name Freq PRN Reason Stop Dose Admin Acetaminophen 650 mg 05/14/25 20:11 Acetaminophen 325 Mg Tablet PO 06/13/25 20:10 Q6H PRN PAIN SCALE 1-3 (mild Atorvastatin Calcium 40 mg 05/14/25 21:00 05/20/25 20:55 Atorvastatin Calcium 20 Mg Tablet PO 06/13/25 20:59 40 mg HS GABE Administration Heparin Sodium/Dextrose 25,000 unit in 250 mls @ 9.798 mls/hr 05/14/25 19:30 05/21/25 02:48 Heparin In D5w Ivpb IV 05/28/25 19:29 7 units/kg/hr .Q24H GABE 5.715 mls/hr Titration Protocol 12 UNITS/KG/HR Ondansetron HCl 4 mg 05/14/25 20:11 Ondansetron Inj 2 Mg/Ml Inj 2 Ml IVP 06/13/25 20:10 Q6H PRN NAUSEA OR VOMITING Protocol Pharmacy Consult 1 each 05/20/25 09:00 Pharmacy To Dose Warfarin PO 06/19/25 08:59 QDAY GABE Sennosides 1 tab 05/14/25 22:53 Senna Tablet PO 06/13/25 22:52 QDAY PRN CONSTIPATION Protocol Sertraline HCl 50 mg 05/17/25 09:00 05/21/25 09:02 Sertraline Hcl 25 Mg Tablet PO 06/16/25 08:59 50 mg QDAY GABE Administration Tramadol HCl 50 mg 05/14/25 20:11 Tramadol Hcl 50 Mg Tablet PO 05/24/25 20:10 Q6HR PRN PAIN SCALE 4-6 (Moderate Valproic Acid 500 mg 05/14/25 21:15 05/21/25 09:02 Valproic Acid Syrup 250 Mg/5 Ml Udc PO 06/13/25 21:14 500 mg BID GABE Administration Warfarin Sodium 5 mg 05/21/25 12:00 Warfarin 5 Mg Tablet PO 05/21/25 12:01 1200 GABE Plan Mr. Brandt is a 54-year-old male with past medical history significant for childhood polio with deformities of the hands and legs, TBI s/p MEDICAL REVIEWER shunt, mitral and aortic mechanical valve replacement on warfarin, hypertension, dyslipidemia, seizure disorder presented to the ED on 05/14 with chief complain intermittent pressure-like chest pain. Admitted for ACS workup and management. #Chest pain- resolved #ACS ruled out #Valvular heart disease, s/p mechanical AV and MV replacement #Prior thromboembolism Patient endorses pressure-like pain that is intermittent at rest. Recently patient completed a stress test which was abnormal value. Was scheduled for outpatient cardiac cath however due to significant chest pain he presented to the ED. Admission trops wnl, EKG unrmarkable, cholesterol wnl. Likely coronary vasospasms Chest x-ray showed median sternotomy wires of frame, minor prominence left ventricle, bilateral probable ventriculoperitoneal shunt tubes. No pneumonia or pulmonary edema. Per cardiology hold warfarin for now and start heparin for therapeutic PTT (Therapeutic PTT is important as pt had prior thromboembolism when anticoagulation is not therapeutic, recommend echo, no plavix. Post coromary angiogram resume warfarin bridge with therapy. INR within 2.5-3.5. ECHO (05/14/25)- Estimated EF at 55%. The RV size is mildy increased with normal systolic function. Moderately increased LA volume 43.7 mL/m?. Cardiac cath showed no significant coronary lesion Plan - Atorvastatin 40 mg qHS - Continue daily INR - Continue monitoring for acute changes in chest pain presentation - Maintain potassium >4.0 and magnesium >2.0 - Cardiology consulted, recs appreciated: cardiac cath clear, warfarin 5 mg x1 to continue bridge until INR>3 - Continue warfarin bridge for pharmacy to dose #Transaminitis- resolving Noted an uptrending in ALT/AST level from admission.AST and ALT 75. 8/- Liver US: Liver 17.3 cm fatty filtration, normal gallbladder, normal CBD 0.3cm Plan - Liver ultrasound ordered - Continue to monitor Liver enzymes #Acute thrombocytopenia- resolved 05/19, platelets 99. On admission platelets 202. Has been on heparin since 05/14. Per pharmacy, unlikely HIT as 50% platelet decrease was over 6 days not 1 day. Ddx: low suspicion for acute bleed as Hgb stable, possible gradual loss of platelets from serial blood draws Plan: - F/u PM CBC, peripheral smear - CTM platelets #Seizures disorders 10/25 #TBI s/p MEDICAL REVIEWER shunt Patient had seizure disorder post s/p traumatic brain injury in 2013 Plan - Continue home valproic acid 500 mg BID for seizure disorder - Continue home sertraline 50 mg QD - Continue to monitor for seizures #Hypertension #Hyperlipemia Patient has a history of hypertension being managed on amlodipine 2.5 mg p.o. daily Plan - Continue to monitor blood pressure - Hold amlodipine 2.5 mg in setting of soft BP - Atorvastatin as above #Wheelchair-bound status #Deformities of bilateral fingers, hands, and feet 2/2 childhood polio Hospital Management: Disposition: post cardiac cath, warfarin bridge Diet: Cardiac GI Prophylaxis: N/A Bowel Prophylaxis: Senna DVT Prophylaxis: Heparin CODE STATUS: Full Code Plan of care discussed with attending Dr. Lane, and PGY-2 Dr. Ch. Elizabeth Barrett PGY-1 Internal Medicine Attending Provider Attestation/Addendum Padmini Trujillo DO, attest that I was physically present for the gutierrez portions of the service and evaluated the patient with the resident and I reviewed and discussed the case with the resident and agree with the resident's findings and plans of care as documented above Patient seen and evaluated this AM. Family is at bedside. Patient has no active complaints and denies chest pain or shorness of breath. INR remains subtherapeutic and is currently bridging with heparin and warfarin. Anticipate INR to be >2.5 tomorrow and can likely be discharged. Family states that the patient goes to the PCP to have INR checked once a month otherwise.
[2025-05-21] MEDS: WARFARIN 5 MG TABLET PO (12:24)
--- NOTE | 2025-05-21 12:56 | PC.SS ---
Follow up note: Bridge with Maximilian. Waiting for I&R to be more than 2.5. Pt will return home upon dc.
[2025-05-21] MEDS: ATORVASTATIN CALCIUM 20 MG TABLET 40 MG PO (20:30)
[2025-05-22] VITALS: BP 112/66; PULSE 67; RESP 20; TEMP 36.6; O2SAT 93
[2025-05-22 04:00] VITALS: BP 97/59; PULSE 63; PULSE 65; RESP 17; TEMP 36.2; O2SAT 95
[2025-05-22] MEDS: Heparin/D5w 25K 250 ML Ivpb 25,000 UNIT/250 ML BAG 5.715 UNIT IV (05:25)
[2025-05-22 06:08] LABS: Basophils # (Auto) 0.1 Thou/mm3 (0.0-0.2); Basophils % (Auto) 1 % (0-2.5); Eosinophils # (Auto) 0.1 Thou/mm3 (0.0-0.5); Eosinophils % (Auto) 2 % (0-10); Hematocrit 45.4 % (41.0-53.0); Hemoglobin 15.2 g/dL (13.5-16.0); Immature Granulocytes Auto 0.04 Thou/mm3 (0.00-0.00); Lymphocytes # (Auto) 2.2 Thou/mm3 (1.0-4.8); Lymphocytes % (Auto) 34 % (10-50); Mean Corpuscular HGB Conc 33.5 g/dl (31.0-37.0); Mean Corpuscular Hemoglobin 29.7 pg (25.0-35.0); Mean Corpuscular Volume 89 fL (80-100); Monocytes # (Auto) 0.5 Thou/mm3 (0.0-0.8); Monocytes % (Auto) 8 % (0-12); Neutrophils # (Auto) 3.5 Thou/mm3 (1.8-7.7); Neutrophils % (Auto) 55 % (37-80); Nucleated Red Blood Cell # 0.00 Thou/mm3 (0.00-0.00); Nucleated Red Blood Cell % 0 /100 WBC (0); Platelet Count 149 Thou/mm3 (140-440); RDW Standard Deviation 43.2 fL (35.1-43.9); Red Blood Count 5.11 Miln/mm3 (4.50-5.90); White Blood Count 6.4 Thou/mm3 (3.8-10.6)
[2025-05-22 06:36] LABS: INR 2.9 (0.9-1.3); Partial Thromboplastin Time 53.1 Seconds (22.0-36.0); Prothrombin Time 29.9 Seconds (9.0-12.2)
[2025-05-22 06:43] LABS: Alanine Aminotransferase 47 U/L (10-49); Albumin, Serum 3.9 gm/dL (3.5-5.0); Albumin/Globulin Ratio 1.6 (1.2-2.2); Alkaline Phosphatase 124 U/L (46-116); Anion Gap 11 (7-16); Aspartate Amino Transferase 31 U/L (0-34); BUN/Creatinine Ratio 16 Ratio (12-20); Bilirubin,Total 0.5 mg/dL (0.3-1.2); Blood Urea Nitrogen 8 mg/dL (9-23); Calcium 9.6 mg/dL (8.3-10.6); Calcium (Corrected) 9.7 mg/dL (8.5-10.1); Carbon Dioxide 26.1 mMol/L (20.0-31.0); Chloride 102 mMol/L (98-107); Creatinine (Component) 0.5 mg/dL (0.6-1.3); Estimated Creatinine Clearance 174.1 mL/min (>60); Globulin 2.5 gm/dL (2.3-3.5); Glucose 126 mg/dL (74-106); Magnesium 1.7 mg/dL (1.6-2.6); Osmolality,Calculated 277 (275-295); Potassium 4.5 mMol/L (3.4-5.1); Sodium 139 mMol/L (136-145); Total Protein 6.4 gm/dL (5.7-8.2); eGFR > 60 See Note
[2025-05-22 08:00] VITALS: BP 119/76; PULSE 66; RESP 18; TEMP 36.2; O2SAT 95
[2025-05-22 08:11] VITALS: PULSE 71
--- NOTE | 2025-05-22 08:11 | PD.IMPROG ---
Documentation for date of: 05/22/25 Subjective Subjective Interval history: INR 2.9 d/c heparin ok to d/c home on home dose of coumadin Exam Vital Signs Temp Pulse Resp BP Pulse Ox O2 Del Method O2 Flow Rate 97.1 F 71 18 119/76 95 Room Air 2 05/22/25 08:00 05/22/25 08:11 05/22/25 08:00 05/22/25 08:00 05/22/25 08:00 05/22/25 08:00 05/19/25 08:30 Routine HEENT Exam Head: Present normocephalic and atraumatic Eye: Present EOMI and PERRL ENT: Present mucous membranes moist Routine Neck Exam Neck: Present supple and trachea midline Routine Respiratory Exam Respiratory: Present chest non-tender, lungs clear, normal breath sounds and no resp distress Routine Cardiovascular Exam Cardiovascular: Present RRR Routine Abdominal Exam Abdominal: Present soft and normoactive bowel sounds Routine Extremities Exam Extremities: Present full ROM Routine Skin Exam Skin: Present intact, dry and warm Routine Neurological Exam Neurological: Present alert, oriented X3 and CN II-XII intact Routine Psychiatric Exam Psychiatric: Present normal affect and normal thought process Objective Labs 05/22/25 05:40 05/22/25 05:40 Labs: Laboratory Results - last 24 hr 05/21/25 05/22/25 09:00 05:40 WBC 6.4 RBC 5.11 Hgb 15.2 Hct 45.4 MCV 89 MCH 29.7 MCHC 33.5 RDW Std Deviation 43.2 Plt Count 149 Neut % (Auto) 55 Lymph % (Auto) 34 Wilcox % (Auto) 8 Eos % (Auto) 2 Baso % (Auto) 1 Neut # (Auto) 3.5 Lymph # (Auto) 2.2 [place] # (Auto) 0.5 Eos # (Auto) 0.1 Baso # (Auto) 0.1 Immature Gran # (Auto) 0.04 H Absolute Nucleated RBC 0.00 Immature Gran % 1 H Nucleated RBC % 0 PT 29.9 H D INR 2.9 H APTT 59.5 H D 53.1 H Sodium 139 Potassium 4.5 Chloride 102 Carbon Dioxide 26.1 Anion Gap 11 BUN 8 L Creatinine 0.5 L Estim Creat Clear Calc 174.1 eGFR > 60 BUN/Creatinine Ratio 16 Glucose 126 H Calculated Osmolality 277 Calcium 9.6 Corrected Calcium 9.7 Magnesium 1.7 Total Bilirubin 0.5 AST 31 ALT 47 Alkaline Phosphatase 124 H Total Protein 6.4 Albumin 3.9 Globulin 2.5 Albumin/Globulin Ratio 1.6 Assessment & Plan A&P Narrative ok to d/c Time Spent With Patient Time: Total time spent is greater than 50% in coordination of care (as documented) at patient's floor/unit and/or counseling patient:
[2025-05-22] MEDS: SERTRALINE HCL 25 MG TABLET 50 MG PO (09:10)
[2025-05-22] MEDS: VALPROIC ACID SYRUP 250 MG/5 ML UDC 500 MG PO (09:14)
--- NOTE | 2025-05-22 10:48 | ESDS_ITS ---
<Statement entered by Padmini Lane DO - 05/23/25 07:38> I, Padmini Lane DO, attest that I was physically present for the gutierrez portions of the service and evaluated the patient with the resident and I reviewed and discussed the case with the resident and agree with the resident's findings and plans of care as documented above <Statement entered by García Ch MD - 05/22/25 17:30> Patient was seen and examined by me personally. I have reviewed the below documentation by the team resident and agree with its findings. Discharge plan was discussed with the attending, Dr. Padmini Lane DO 54-year-old male with past medical history as below admitted for ACS workup. Patient follows with senior health physics technician Dr. Reed outpatient had abnormal nuclear stress test did complain of chest pain was admitted for cardiac cath. Patient on warfarin secondary to mechanical valves was bridged to low INR on heparin gtt. underwent cardiac cath which was unremarkable for any significant coronary lesion, was transitioned back to warfarin to achieve therapeutic INR. Patient's INR today is 2.9, patient denied any active chest pain throughout the hospitalization, stable to be discharged today. Responded well to hospital treatment. García Ch MD Internal Medicine, PGY-2 Planned Discharge Date 05/22/25 DS: Providers Provider Date of admission: 05/14/25 20:11 Primary care physician: Ti Lopez MD Admitting Provider: Gordon Don MD Attending Provider on Admission: Padmini Lane DO Consults: 05/14/25 16:08 Consult to Cardiology Stat Comment: Consulting Provider: Reid Stevens Attending Provider on DC: Padmini Lane DO Discharging Provider: Padmini Lane DO Anticipated date of discharge: 05/22/25 DS: Diagnosis Problem List Completed Was Problem List Reviewed/Reconciled?: Yes Hospital Course Hospital Course Hospital course: Summary Mr. 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 Admitted for ACS workup and management. Patient follows cardiology Dr. Stevens outpatient. Per chart review patient had abnormal stress test outpatient and they have an outpatient cardiac catheterization planned. In the ED vitals were within normal limit. EKG showed sinus rhythm. Chest x-ray showed median sternotomy wires of wiring, bilateral ventriculoperitoneal shunt tubes, no pneumonia or pulmonary edema. Labs significant for elevated PT and elevated INR. Per cardio held warfarin and transition to heparin drip. Cardiac cath was done on 05/19/25 showed no significant coronary lesion or stenosis. Postcardiac cath started bridging to warfarin. Therapuetic INR >2.5. INR improved to 2.9. Heparin discontinued. Encourage patient follow-up PCP to have INR checked monthly. Throughout the hospital course patient other problems were managed and his condition improved remarkably with progression of hospital course. Further plan to discharge the patient home since he is hemodynamically stable to be discharged home to self care with the following instructions. Discharge recommendation: - Follow up with cardiology outpatient in 1-2 weeks - Continue all home medications as below - Follow up with PCP outpatient in 1 week, weekly INR with PCP, continue Warfarin home dose - Return to ED if symptoms worsen Hospital Diagnoses: #Chest pain- resolved #ACS ruled out #Valvular heart disease, s/p mechanical AV and MV replacement #Prior thromboembolism #Transaminitis- resolved #Acute thrombocytopenia- resolved #Seizures disorders 2/2 #TBI s/p PRODUCTION GRADER shunt #Hypertension #Hyperlipemia #Wheelchair-bound status #Deformities of bilateral fingers, hands, and feet 2/2 childhood polio Patient seen and assessed under supervision of attending physician and discuss with senior resident Dr. Ch PGY-2 Elizabeth Barrett MD PGY-1, Internal Medicine Time Spent with Patient Time attestation: Total time spent providing and/or coordinating discharge services: Time spent: Greater than 30 minutes Exam Vital Signs Temp Pulse Resp BP Pulse Ox O2 Del Method O2 Flow Rate 97.1 F 71 18 119/76 95 Room Air 2 05/22/25 08:00 05/22/25 08:11 05/22/25 08:00 05/22/25 08:00 05/22/25 08:00 05/22/25 08:00 05/19/25 08:30 Narrative Exam GENERAL: AOx3, no acute distress HEENT: NC/AT, mucous membranes moist, bilateral sclera anicteric, +cloudy L pupil CARDIOVASCULAR: regular rate and rhythm, S1/S2 present, no murmurs appreciated PULMONARY: clear to auscultation bilaterally, no rales/rhonchi/wheezes ABDOMINAL: soft, non-tender, midly-distended, no rebound/guarding, bowel sounds present EXTREMITIES: no peripheral edema, deformed and contracted fingers bilateral hands and feet MSK: BLE 5/5 strength, BUE 5/5 strength SKIN: warm and dry, intact, no rashes NEURO: CN II-XII grossly intact, no focal deficits, alert, following commands Discharge Plan Plan Patient Disposition: HOME (Self Care) Patient condition on transfer: Stable Care Plan Goals: - Follow up with Cardiologit outpatient in 1-2 weeks - Continue all home medications as below - Follow up with PCP outpatient in 1 week, weekly INR with PCP, continue Warfarin home dose - Return to ED if symptoms worsen Prescriptions/Referrals Prescriptions/Med Rec: Continued valproic acid 250 mg Capsule 500 mg PO BID sertraline 50 mg tablet 50 mg PO QDAY Patient Comments: TAKE 1 TABLET BY MOUTH EVERY DAY amlodipine 2.5 mg tablet 2.5 mg PO QDAY Patient Comments: take 1 tablet by mouth once daily for high blood pressure warfarin 4 mg tablet 4 mg PO QDAY Patient Comments: take 1 tablet by mouth once daily atorvastatin 20 mg tablet 20 mg PO HS Patient Comments: take 1 tablet by mouth nightly Referrals: Ti Lopez MD [Primary Care Provider] - Patient/Caregiver Discharge Instructions Discharge Activity: activity as tolerated Education Materials: Eating Heart-Healthy Foods, ED Heart Disease Education Print Language: Citizen Of [place] Stand Alone Forms: [employer] Award Info., Patient Portal Info Letter Discharge Order Discharge Orders: Discharge (Routine); Ordered 05/22/25 Ordered By: García hC Quality Discharge Quality Measures VTE prophylaxis
[2025-05-22] MEDS: WARFARIN 2.5 MG TABLET PO (11:49)
[2025-05-22 11:53] VITALS: PULSE 64
[2025-05-22 12:00] VITALS: BP 108/70; PULSE 70; RESP 20; TEMP 36.2; O2SAT 98
== END 2025-05-22 14:38 | disposition home or self-care (01) | DRG 287 ==
LOC: SERX 19:24 → SERHOLD 20:43 → S2NX 05-15 16:21 → S3NX 05-20 18:13
PROVIDERS: Emergency Medicine; Internal Medicine; Physician Assistant Medical; Admitting Provider Student in an Organized Health Care Education/Training Program; Emergency Provider Emergency Medicine; PCP Family Medicine; Visit Provider Internal Medicine
PROC: 4A023N7 Measurement of Cardiac Sampling and Pressure, Left Heart, Percutaneous Approach (ICD-10-PCS; principal; 2025-05-19 07:30)
DX: I25.110 Atherosclerotic heart disease of native coronary artery with unstable angina pectoris (principal); G40.509 Epileptic seizures related to external causes, not intractable, without status epilepticus; E78.5 Hyperlipidemia, unspecified; Z95.2 Presence of prosthetic heart valve; Z99.3 Dependence on wheelchair; I10 Essential (primary) hypertension; Z98.2 Presence of cerebrospinal fluid drainage device; D69.6 Thrombocytopenia, unspecified; I27.20 Pulmonary hypertension, unspecified; Z60.3 Acculturation difficulty; Z79.01 Long term (current) use of anticoagulants; Z79.899 Other long term (current) drug therapy; R79.1 Abnormal coagulation profile; Z86.718 Personal history of other venous thrombosis and embolism; Z86.73 Personal history of transient ischemic attack (TIA), and cerebral infarction without residual deficits; Z86.12 Personal history of poliomyelitis
CPT/HCPCS: 36415; 71046; 76705; 80053; 80061; 83036; 83735; 83880; 84100; 84443; 84484; 85025; 85610; 85730; 93005; 93225; 93306; 96365; 96366; 99152; 99284; A4216; A4649; C1725; C1760; C1894; J0168; J0461; J0583; J1643; J1644; J2250; J2312; J2371; J3010; J3475; J3490; Q9967; A9270